=== PATIENT | female | born 1975 | race Caucasian/White ===

== ENCOUNTER 2021-01-06 14:46 | Inpatient (IN) | payer MEDICAID, SELFPAY ==
[2021-01-06] VITALS (13 sets, daily range): BP systolic 99–125; BP diastolic 53–74; PULSE 85–105; RESP 17–32; TEMP 37.2; O2SAT 95–100; BMI 20.7
--- NOTE | 2021-01-06 15:08 | DI.RAD.S_ITS ---
PROCEDURE: XR CHEST 1V INDICATIONS: suspected sepsis TECHNIQUE: One view of the chest was acquired. COMPARISON: [facility], , CHEST 2 VIEW, 06/07/2007, 17:10. FINDINGS: Surgical changes and devices: None. Lungs and pleura: Lungs are clear. No pleural effusions or pneumothorax. Mediastinum: Mediastinal contours appear normal. Heart size is normal. Bones and chest wall: No suspicious bony lesions. Overlying soft tissues appear unremarkable. IMPRESSION: The patient is rotated and tilted rightward. A definite pneumonia is not seen but quality of visualization is somewhat limited. Follow-up CT scanning may become necessary. Dictated by: Griffin Pierre M.D. on 01/06/2021 at 16:45 Approved by: Griffin Pierre M.D. on 01/06/2021 at 16:45
--- NOTE | 2021-01-06 15:39 | DI.RAD.S_ITS ---
PROCEDURE: XR FOOT RT MIN 3V INDICATIONS: SEVERE INFECTION RIGHT FOOT TECHNIQUE: 3 views of the foot were acquired. COMPARISON: None. FINDINGS: Bones: No fractures or dislocations but there is severe osteomyelitis involving the distal half of the 1st distal phalanx, involving the distal, middle, and proximal phalanges of the 2nd digit prominent soft tissue swelling is present.. No suspicious bony lesions. Soft tissues: No tibiotalar joint effusion. Achilles tendon appears normal. IMPRESSION: Prominent soft tissue swelling over the medial forefoot, with osteolysis involving the distal 1st digit and the 3 phalanges of the 2nd digit. Dictated by: Griffin Pierre M.D. on 01/06/2021 at 16:12 Approved by: Griffin Pierre M.D. on 01/06/2021 at 16:13
[2021-01-06] MEDS: SODIUM CHLORIDE 0.9% 1,000 ML 1000 ML IV (18:54)
[2021-01-06 19:01] LABS: Add Manual Diff / Slide Review NO; Basophils Absolute Auto 100 /uL (0-100); Basophils Percent Auto 0.6 % (0-2); Eosinophils Absolute Auto 100 /uL (0-450); Eosinophils Percent Auto 0.8 % (2-4); Hematocrit 32.4 % (36-46); Hemoglobin 10.1 g/dL (12.0-16.0); Lymphocytes Absolute Auto 1400 /uL (1100-4500); Lymphocytes Percent Auto 10.9 % (25-40); Mean Corpuscular HGB Conc 31.1 % (30-36); Mean Corpuscular Hemoglobin 25.4 PG (26-34); Mean Corpuscular Volume 81.8 fL (80-100); Monocytes Absolute Auto 1400 /uL (0-900); Monocytes Percent Auto 10.9 % (3-14); Neutrophils Absolute Auto 9900 /uL (1500-7000); Neutrophils Percent Auto 76.8 % (50-75); Platelet Count 305 X10^3/uL (150-400); Red Blood Cell Count 3.95 X10^6/uL (4.0-5.2); Red Cell Distribution Width 19.7 % (11.6-14.8); White Blood Cell Count 12.9 X10^3/uL (4.5-11.0)
--- NOTE | 2021-01-06 19:12 | ED.LOWEXIN ---
HPI - Extremity Injury (Lower) General Chief Complaint: Extremity Injury, Lower Stated Complaint: severe infection on right foot Time Seen by Provider: 01/06/21 19:06 Source: patient and family Mode of arrival: Wheelchair Limitations: no limitations History of Present Illness HPI Narrative: Female who is here for evaluation of an infection in her right foot. Is also having pain and discoloration and swelling. She states she has been having right foot problems for the past several weeks if not longer. She has not seen anyone for this issue. She does not have any specific trauma. She states that the way that her foot looks now started to develop over the past couple days. She states she has spent extended amount of time in her shoes and socks and has not looked at her foot. 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 She states that she ?just has not looked ?at her feet. Related Data Home Medications Medication Instructions Recorded Confirmed MEDROXYPROGESTERONE ACETATE 0 IM Q 3 MONTHS #0 06/07/07 (Depo-Provera) Allergies Allergy/AdvReac Type Severity Reaction Status Date / Time No Known Drug Allergies Allergy Verified 01/06/21 14:55 Review of Systems Constitutional Constitutional: Denies fever(s) Cardiovascular Cardiovascular: Denies chest pain and Denies dyspnea Respiratory Respiratory: Denies dyspnea Gastrointestinal Gastrointestinal: Denies abdominal pain Musculoskeletal Comments: Right foot pain Integumentary/Breasts Comments: Redness and swelling of the right foot Neurologic Comments: Minimal decreased sensation to the right foot Psychiatric Psychiatric: Reports system reviewed and no additional complaints, except as documented Hematologic/Lymphatic On Anticoagulants: No Allergic/Immunologic Allergic/Immunologic: Reports system reviewed and no additional complaints, except as documented Patient History Medical History Patient denies medical problems Social History Smoking Status: Never smoker Smoking Status: Never smoker Substance Use Type: does not use Exam Initial Vital Signs Initial Vital Signs: Vital Signs Temperature 99 F 01/06/21 14:55 Pulse Rate 97 H 01/06/21 14:55 Respiratory Rate 24 01/06/21 14:55 Blood Pressure 115/74 01/06/21 14:55 Pulse Oximetry 100 01/06/21 14:55 Const General: cooperative HENMT Head: normal to inspection and normocephalic Resp Effort & Inspection: normal respiratory effort Cardio Rate: regular rate Pulses: dorsalis pedis present on the right Skin Other: Patient has a swollen right foot. She is red from her toes to her ankles. There is what appears to be purulent material coming from between her toes. Has foul smell. Neuro Sensory Exam: no sensory deficits noted Extrem Other: Right lower extremity swelling with right foot swelling Psych Appearance: grossly normal Course Orders Ordered: ED Orders 01/07/21 05:00 C-Reactive Protein Quant Urgent Complete Blood Count AUTO DIFF DAILY Comprehensive Metabolic Panel DAILY Erythrocyte Sedimentation Rate Urgent Magnesium Urgent 01/08/21 05:00 Complete Blood Count AUTO DIFF DAILY Comprehensive Metabolic Panel DAILY 01/09/21 05:00 Complete Blood Count AUTO DIFF DAILY Comprehensive Metabolic Panel DAILY Sodium Chloride (Normal Saline 0.9%) 1,000 mls @ 125 mls/hr IV CONT GREGORIO Last Admin: 01/06/21 23:01 Dose: 125 mls/hr Documented by: YENNY Discontinued Medications Hydrocodone Bitart/Acetaminophen (Hydrocodone/Acet 5/325 Tablet) 1 tab PO NOW ONE Stop: 01/06/21 22:57 Last Admin: 01/06/21 23:01 Dose: 1 tab Documented by: YENNY Sodium Chloride (Normal Saline 0.9%) 1,000 mls @ 1,000 mls/hr IV BOLUS ONE Stop: 01/06/21 16:07 Last Infusion: 01/06/21 20:46 Dose: 0 mls/hr Documented by: Admin: 01/06/21 18:54 Dose: 1,000 mls/hr Documented by: MILA Vancomycin HCl (Vancomycin) 1,000 mg in 200 mls @ 200 mls/hr IV NOW ONE Stop: 01/06/21 20:12 Last Infusion: 01/06/21 21:46 Dose: 0 mls/hr Documented by: Admin: 01/06/21 20:40 Dose: 200 mls/hr Documented by: CARYL Ceftriaxone Sodium 1,000 mg/ (Sodium Chloride) 100 mls @ 200 mls/hr IV NOW ONE Stop: 01/06/21 19:14 Last Infusion: 01/06/21 20:40 Dose: 0 mls/hr Documented by: Admin: 01/06/21 19:54 Dose: 200 mls/hr Documented by: YENNY Vital Signs Vital signs: Vital Signs - 8 hr 01/06/21 23:30 01/07/21 00:00 01/07/21 00:30 Pulse Rate 89 86 83 Respiratory Rate 32 H 20 26 H Blood Pressure 100/53 L 95/54 L 95/64 Pulse Oximetry 98 96 98 01/07/21 01:00 01/07/21 01:30 01/07/21 02:00 Pulse Rate 81 80 78 Respiratory Rate 26 H 22 17 Blood Pressure 107/65 116/58 L Pulse Oximetry 97 98 96 01/07/21 02:30 01/07/21 03:00 01/07/21 03:30 Pulse Rate 75 75 75 Respiratory Rate 23 20 13 Blood Pressure 95/59 L 92/52 L 103/56 L Pulse Oximetry 97 97 99 01/07/21 04:00 01/07/21 04:30 01/07/21 05:00 Pulse Rate 77 77 77 Respiratory Rate 21 21 21 Blood Pressure 100/57 L 92/52 L Pulse Oximetry 98 100 98 MDM - Extremity Injury (Lower) Lab Data Attestation: I reviewed the patient's lab results. Result diagrams: 01/06/21 18:43 01/06/21 18:43 Labs: Lab Results 01/06/21 01/06/21 01/06/21 Range/Units 18:43 18:43 18:43 WBC 12.9 H (4.5-11.0) X10^3/uL RBC 3.95 L (4.0-5.2) X10^6/uL Hgb 10.1 L (12.0-16.0) g/dL Hct 32.4 L (36-46) % MCV 81.8 (80-100) fL MCH 25.4 L (26-34) PG MCHC 31.1 (30-36) % RDW 19.7 H (11.6-14.8) % Plt Count 305 (150-400) X10^3/uL Neut % (Auto) 76.8 H (50-75) % Lymph % (Auto) 10.9 L (25-40) % [place] % (Auto) 10.9 (3-14) % Eos % (Auto) 0.8 L (2-4) % Baso % (Auto) 0.6 (0-2) % Neut # (Auto) 9900 H (1644-3805) /uL Lymph # (Auto) 1400 (1048-1464) /uL [place] # (Auto) 1400 H (0-900) /uL Eos # (Auto) 100 (0-450) /uL Baso # (Auto) 100 (0-100) /uL Sodium 129 L (137-145) mmol/L Potassium 3.5 (3.4-5.1) mmol/L Chloride 91 L (98-107) mmol/L Carbon Dioxide 26 (22-32) mmol/L BUN 13 (7-17) mg/dL Creatinine 0.40 L (0.52-1.04) mg/dL Estimated GFR > 60.0 (>60) mL/min BUN/Creatinine Ratio 32.5 H (6-22) Glucose 349 H (70-100) mg/dL Lactate 2.2 H (0.7-2.1) mmol/L Calcium 9.1 (8.4-10.2) mg/dL Total Bilirubin 0.8 (0.2-1.3) mg/dL AST 53 H (14-36) IU/L ALT 22 (<35) IU/L Alkaline Phosphatase 93 (38-126) U/L Total Protein 9.0 H (6.3-8.2) g/dL Albumin 3.8 (3.5-5.0) g/dL Globulin 5.2 H (1.7-4.1) g/dL Albumin/Globulin Ratio 0.7 L (1.0-2.8) Lipase 74 (23-300) U/L Procalcitonin 0.29 (<0.5) ng/mL SARS-CoV-2 (PCR) (Negative) 01/06/21 01/06/21 Range/Units 19:55 21:08 WBC (4.5-11.0) X10^3/uL RBC (4.0-5.2) X10^6/uL Hgb (12.0-16.0) g/dL Hct (36-46) % MCV (80-100) fL MCH (26-34) PG MCHC (30-36) % RDW (11.6-14.8) % Plt Count (150-400) X10^3/uL Neut % (Auto) (50-75) % Lymph % (Auto) (25-40) % [place] % (Auto) (3-14) % Eos % (Auto) (2-4) % Baso % (Auto) (0-2) % Neut # (Auto) (2504-3862) /uL Lymph # (Auto) (9178-3066) /uL [place] # (Auto) (0-900) /uL Eos # (Auto) (0-450) /uL Baso # (Auto) (0-100) /uL Sodium (137-145) mmol/L Potassium (3.4-5.1) mmol/L Chloride (98-107) mmol/L Carbon Dioxide (22-32) mmol/L BUN (7-17) mg/dL Creatinine (0.52-1.04) mg/dL Estimated GFR (>60) mL/min BUN/Creatinine Ratio (6-22) Glucose (70-100) mg/dL Lactate 1.0 (0.7-2.1) mmol/L Calcium (8.4-10.2) mg/dL Total Bilirubin (0.2-1.3) mg/dL AST (14-36) IU/L ALT (<35) IU/L Alkaline Phosphatase (38-126) U/L Total Protein (6.3-8.2) g/dL Albumin (3.5-5.0) g/dL Globulin (1.7-4.1) g/dL Albumin/Globulin Ratio (1.0-2.8) Lipase (23-300) U/L Procalcitonin (<0.5) ng/mL SARS-CoV-2 (PCR) Negative (Negative) Imaging Data Chest x-ray: Radiologist's Impression: [address] [id number] ReportSigned Patient: Radha Sandhu LMR#: [id number]: 1975Acct:[id number]/Sex: 45 / FDate of Service: 01/06/21Loc: EDAccession Number: [id number] Procedure: XR chest 1V Ordering Provider: Karime Tompkins D.O. PROCEDURE: XR CHEST 1V INDICATIONS: suspected sepsis TECHNIQUE: One view of the chest was acquired. COMPARISON: [facility], , CHEST 2 VIEW, 06/07/2007, 17:10. FINDINGS: Surgical changes and devices: None. Lungs and pleura: Lungs are clear. No pleural effusions or pneumothorax. Mediastinum: Mediastinal contours appear normal. Heart size is normal. Bones and chest wall: No suspicious bony lesions. Overlying soft tissues appear unremarkable. IMPRESSION: The patient is rotated and tilted rightward. A definite pneumonia is not seen but quality of visualization is somewhat limited. Follow-up CT scanning may become necessary. Dictated by: Griffin Pierre M.D. on 01/06/2021 at 16:45 Approved by: Griffin Pierre M.D. on 01/06/2021 at 16:45 Extremity x-ray #1: Radiologist's Impression: [address] [id number] ReportSigned Patient: Radha Sandhu LMR#: [id number]: [id number]:[id number]/Sex: 45 / FDate of Service: 01/06/21Loc: EDAccession Number: [id number] Procedure: XR foot RT min 3V Ordering Provider: *MARY Jack* PROCEDURE: XR FOOT RT MIN 3V INDICATIONS: SEVERE INFECTION RIGHT FOOT TECHNIQUE: 3 views of the foot were acquired. COMPARISON: None. FINDINGS: Bones: No fractures or dislocations but there is severe osteomyelitis involving the distal half of the 1st distal phalanx, involving the distal, middle, and proximal phalanges of the 2nd digit prominent soft tissue swelling is present.. No suspicious bony lesions. Soft tissues: No tibiotalar joint effusion. Achilles tendon appears normal. IMPRESSION: Prominent soft tissue swelling over the medial forefoot, with osteolysis involving the distal 1st digit and the 3 phalanges of the 2nd digit. Dictated by: Griffin Pierre M.D. on 01/06/2021 at 16:12 Approved by: Griffin Pirere M.D. on 01/06/2021 at 16:13 MDM Narrative Medical decision making narrative: Patient is afebrile. Does have leukocytosis. Has an obviously infected right foot with x-ray evidence concerning for bony involvement. Does have a white foul-smelling purulent material coming from the area. There is no signs of necrosis seen. Blood cultures were obtained. Lactate initially 2.2 but this improved. Was given antibiotics here in the emergency department. Given the nature of the wound in the fact the patient does not have a primary provider I do feel the patient needs admitted for IV antibiotics. We had no bed availability at the time of the decision for admission so the patient will be boarded in the emergency department until bed status is obtained. Discussed the case with Dr. Maurer. Will admit for further evaluation and treatment. Discharge Plan Departure Patient Disposition: Admitted As Inpatient Clinical Impression: Cellulitis
[2021-01-06 19:42] LABS: Lactate (Lactic Acid) 2.2 mmol/L (0.7-2.1)
[2021-01-06 19:43] LABS: Alanine Aminotransferase 22 IU/L (<35); Albumin 3.8 g/dL (3.5-5.0); Albumin Globulin Ratio 0.7 (1.0-2.8); Alkaline Phosphatase 93 U/L (38-126); Aspartate Aminotransferase 53 IU/L (14-36); BUN Creatinine Ratio 32.5 (6-22); Bilirubin Total 0.8 mg/dL (0.2-1.3); Blood Urea Nitrogen 13 mg/dL (7-17); Calcium 9.1 mg/dL (8.4-10.2); Carbon Dioxide 26 mmol/L (22-32); Chloride 91 mmol/L (98-107); Estimated Glomerular Filt Rate > 60.0 mL/min (>60); Globulin 5.2 g/dL (1.7-4.1); Glucose 349 mg/dL (70-100); HEMOLYSIS < 15 (0-50); Lipase 74 U/L (23-300); Potassium 3.5 mmol/L (3.4-5.1); Sodium 129 mmol/L (137-145)
[2021-01-06] MEDS: cefTRIAXone 1,000 MG in SODIUM CHLORIDE 0.9% 100 ML 200 ML IV (19:54)
[2021-01-06 20:00] LABS: Procalcitonin 0.29 ng/mL (<0.5)
[2021-01-06] MEDS: VANCOMYCIN 1,000 MG/200 ML PIGGYBACK 200 MG IV (20:40)
[2021-01-06 20:51] LABS: Reflexed Lactate in 2 Hours Y
[2021-01-06 21:29] LABS: COVID19 - ADMIT (NP swab/PCR) Negative (Negative)
[2021-01-06] MEDS: HYDROCODONE/ACET 5/325 TABLET 1 TAB PO (23:01)
[2021-01-06] MEDS: SODIUM CHLORIDE 0.9% 1,000 ML 125 ML IV (23:01)
[2021-01-07] VITALS (19 sets, daily range): BP systolic 92–120; BP diastolic 52–71; PULSE 75–86; RESP 13–28; TEMP 36.9–37.3; O2SAT 96–100; BMI 20.7
[2021-01-07 07:57] LABS: Alanine Aminotransferase 16 IU/L (<35); Albumin 2.9 g/dL (3.5-5.0); Albumin Globulin Ratio 0.7 (1.0-2.8); Alkaline Phosphatase 66 U/L (38-126); Aspartate Aminotransferase 37 IU/L (14-36); Bilirubin Total 0.4 mg/dL (0.2-1.3); Blood Urea Nitrogen 8 mg/dL (7-17); Carbon Dioxide 28 mmol/L (22-32); Chloride 98 mmol/L (98-107); Estimated Glomerular Filt Rate > 60.0 mL/min (>60); Globulin 4.4 g/dL (1.7-4.1); Glucose 250 mg/dL (70-100); HEMOLYSIS < 15 (0-50); Potassium 3.4 mmol/L (3.4-5.1); Sodium 132 mmol/L (137-145); Total Protein 7.3 g/dL (6.3-8.2)
[2021-01-07 07:58] LABS: Add Manual Diff / Slide Review NO; Basophils Absolute Auto 100 /uL (0-100); Basophils Percent Auto 1.3 % (0-2); Eosinophils Absolute Auto 300 /uL (0-450); Hematocrit 28.4 % (36-46); Hemoglobin 8.8 g/dL (12.0-16.0); Lymphocytes Absolute Auto 1700 /uL (1100-4500); Lymphocytes Percent Auto 19.6 % (25-40); Mean Corpuscular HGB Conc 31.1 % (30-36); Mean Corpuscular Hemoglobin 25.3 PG (26-34); Mean Corpuscular Volume 81.2 fL (80-100); Monocytes Absolute Auto 900 /uL (0-900); Monocytes Percent Auto 10.5 % (3-14); Neutrophils Absolute Auto 5700 /uL (1500-7000); Neutrophils Percent Auto 65.6 % (50-75); Platelet Count 265 X10^3/uL (150-400); Red Cell Distribution Width 19.9 % (11.6-14.8); White Blood Cell Count 8.7 X10^3/uL (4.5-11.0)
[2021-01-07 08:06] LABS: Erythrocyte Sedimentation Rate > 140 MM/HR (0-20)
[2021-01-07 08:10] LABS: C-Reactive Protein Quant 18.9 mg/dL (<1.0)
--- NOTE | 2021-01-07 09:15 | DI.MRI.S_ITS ---
PROCEDURE: MR FOOT RT WO/W CON INDICATIONS: rt foot abscess TECHNIQUE: Noncontrast coronal T1 spin echo and STIR, sagittal T1 spin echo with fat saturation and STIR, axial T1 spin echo and T2 fast spin echo with fat saturation. After the administration of contrast, axial/sagittal/coronal T1 spin echo with fat saturation through the right forefoot . COMPARISON: [facility], CR, XR FOOT RT MIN 3V, 01/06/2021, 15:34. FINDINGS: Image quality: Exam markedly degraded by uncontrollable motion artifact. Bones: Redemonstrated lytic and destructive appearance involving the middle and proximal phalanges of the 2nd toe. There is associated soft tissue swelling, and possible gas seen at the distal plantar aspect of the 2nd toe image 15/4. Marrow signal changes in these areas demonstrating loss of normal fat signal intensity on T1 weighted pulse sequences, although partially obscured by motion artifact. Remaining marrow signal appears grossly normal although suboptimal evaluation given extensive motion artifact. Soft tissues: Large rim enhancing abscess is seen in the deep plantar soft tissues, with close approximation to the skin surface and recommend clinical correlation to determine external communication. There is also extension of fluid into the 1st-2nd interspace on image 26/11. Exact measurements are precluded by irregular configuration however on image 38/11 this measures 2.8 x 1.9 cm. This closely approximates and surrounds the the flexor tendons, the 2nd toe flexor tendon is not well seen and may be ruptured. The 2nd toe extensor tendon also not well seen and may be ruptured. The remaining extensor tendons appear grossly intact although not well seen at the great toe in part due to motion artifact. Circumferential skin thickening and subcutaneous cellulitis. Diffuse muscle atrophy. IMPRESSION: Osteomyelitis involving the 2nd toe proximal and middle phalanges with redemonstrated leona osseous destruction. Large ill-defined abscess involve in the deep plantar soft tissues, which extends to the plantar skin surface of the forefoot, and into the 1st-2nd toe interspace. Severely motion degraded examination. Dictated by: Mckay Reed M.D. on 01/07/2021 at 11:47 Approved by: Mckay Reed M.D. on 01/07/2021 at 12:07
--- NOTE | 2021-01-07 09:38 | PM.HP.1 ---
History of Present Illness History of Present Illness Date Patient Seen: 01/07/21 Time Patient Seen: 08:30 Chief complaint: severe infection on right foot Narrative: Patient is a 45-year-old female with history of alcohol dependency presents to the emergency department with complaints of right foot pain, redness and swelling for several days. Actually she admits to having swelling in the right foot for at least the past 5 months. She admits to ignoring symptoms. She states she has not been changing her socks every day but the last couple of days her foot became more obviously erythematous and painful. Evaluation in the ED included blood work which showed WBC 12.9, ESR greater than 140 and CRP of 18.9. Her blood sugar was 349 and patient was not previously known to have diabetes. She was afebrile. A foot x-ray showed osteolysis in the right 2nd digit. Patient was started on broad-spectrum antibiotics. Patient admits to chronic alcohol use consisting of significant amount of vodka although can not quantify. She has not previously tried to quit drinking or seek treatment for alcohol dependency. She is a nonsmoker. She is and works as a cook at the [employer]. In terms of family history her mom, father and sister all with diabetes. Her mom of [place]. there is also alcohol history in at least her father. Patient History Medical History Patient denies medical problems Family & Social History Safety & Behavioral: Feels Safe in Current Yes Environment Been Physically Hurt or No Threatened By a Person Tobacco & Substance use: Smoking Status Never smoker alcohol intake frequency 3 or more drinks per day Substance Use Type does not use Meds Home Medications and Allergies Home Medications Medication Instructions Recorded Confirmed Type MEDROXYPROGESTERONE ACETATE 0 IM Q 3 MONTHS #0 06/07/07 History (Depo-Provera) Allergies Allergy/AdvReac Type Severity Reaction Status Date / Time No Known Drug Allergies Allergy Verified 01/06/21 14:55 Review of Systems Review of Systems Narrative: All review of systems negative unless otherwise stated, + insomnia-has not slept for a week Exam Vital Signs (past 8 hours): - 01/07/21 02:00 01/07/21 02:30 01/07/21 03:00 Pulse Rate 78 75 75 Respiratory Rate 17 23 20 Blood Pressure 116/58 L 95/59 L 92/52 L Pulse Oximetry 96 97 97 01/07/21 03:30 01/07/21 04:00 01/07/21 04:30 Pulse Rate 75 77 77 Respiratory Rate 13 21 21 Blood Pressure 103/56 L 100/57 L Pulse Oximetry 99 98 100 01/07/21 05:00 01/07/21 05:30 01/07/21 06:00 Pulse Rate 77 78 75 Respiratory Rate 21 15 17 Blood Pressure 92/52 L 92/54 L 93/54 L Pulse Oximetry 98 99 97 01/07/21 06:30 01/07/21 07:00 01/07/21 07:01 Pulse Rate 79 79 79 Respiratory Rate 28 H 20 Blood Pressure 93/64 109/56 L Pulse Oximetry 98 97 99 Oxygen Delivery Method Room Air Narrative Exam Narrative: General: Patient appears alert, well developed and well nourished in no acute distress HEENT: Anicteric, pupils equal, EOMI, oropharynx normal Neck: No lymphadenopathy Lungs: Clear to auscultation Heart: Normal S1 and S2, regular rate and rhythm, no murmur Abdomen: Nondistended, nontender, no HSM Extremities/musculoskeletal: The right foot is severely swollen and diffusely erythematous medially to distally involving digits 1-5, there is copious pus coming out between the great toe and 2nd digit, the plantar portion of the mid to distal foot is also swollen without obvious fluctuance, due to swelling the toes are difficult to separate so it is hard to tell whether there is an ulcer between the toes but no ulcer seen on this exam, DP 2+ bilaterally Neurological: Appears well oriented, speech normal, affect normal to flat, nonfocal Objective Labs Result Diagrams: 01/07/21 07:38 01/07/21 07:38 Labs: Laboratory Results - last 24 hr 01/06/21 01/06/21 01/06/21 18:43 18:43 18:43 WBC 12.9 H RBC 3.95 L Hgb 10.1 L Hct 32.4 L MCV 81.8 MCH 25.4 L MCHC 31.1 RDW 19.7 H Plt Count 305 Neut % (Auto) 76.8 H Lymph % (Auto) 10.9 L [place] % (Auto) 10.9 Eos % (Auto) 0.8 L Baso % (Auto) 0.6 Neut # (Auto) 9900 H Lymph # (Auto) 1400 [place] # (Auto) 1400 H Eos # (Auto) 100 Baso # (Auto) 100 ESR Sodium 129 L Potassium 3.5 Chloride 91 L Carbon Dioxide 26 BUN 13 Creatinine 0.40 L Estimated GFR > 60.0 BUN/Creatinine Ratio 32.5 H Glucose 349 H Lactate 2.2 H Calcium 9.1 Magnesium Total Bilirubin 0.8 AST 53 H ALT 22 Alkaline Phosphatase 93 C-Reactive Protein Total Protein 9.0 H Albumin 3.8 Globulin 5.2 H Albumin/Globulin Ratio 0.7 L Lipase 74 Procalcitonin 0.29 SARS-CoV-2 (PCR) 01/06/21 01/06/21 01/07/21 19:55 21:08 07:38 WBC 8.7 RBC 3.50 L Hgb 8.8 L Hct 28.4 L MCV 81.2 MCH 25.3 L MCHC 31.1 RDW 19.9 H Plt Count 265 Neut % (Auto) 65.6 Lymph % (Auto) 19.6 L [place] % (Auto) 10.5 Eos % (Auto) 3.0 Baso % (Auto) 1.3 Neut # (Auto) 5700 Lymph # (Auto) 1700 [place] # (Auto) 900 Eos # (Auto) 300 Baso # (Auto) 100 ESR Sodium Potassium Chloride Carbon Dioxide BUN Creatinine Estimated GFR BUN/Creatinine Ratio Glucose Lactate 1.0 Calcium Magnesium Total Bilirubin AST ALT Alkaline Phosphatase C-Reactive Protein Total Protein Albumin Globulin Albumin/Globulin Ratio Lipase Procalcitonin SARS-CoV-2 (PCR) Negative 01/07/21 01/07/21 01/07/21 07:38 07:38 07:38 WBC RBC Hgb Hct MCV MCH MCHC RDW Plt Count Neut % (Auto) Lymph % (Auto) [place] % (Auto) Eos % (Auto) Baso % (Auto) Neut # (Auto) Lymph # (Auto) [place] # (Auto) Eos # (Auto) Baso # (Auto) ESR > 140 H Sodium 132 L Potassium 3.4 Chloride 98 Carbon Dioxide 28 BUN 8 Creatinine 0.32 L Estimated GFR > 60.0 BUN/Creatinine Ratio 25.0 H Glucose 250 H Lactate Calcium 8.0 L Magnesium 2.0 Cancelled Total Bilirubin 0.4 AST 37 H ALT 16 Alkaline Phosphatase 66 C-Reactive Protein 18.9 H Cancelled Total Protein 7.3 Albumin 2.9 L Globulin 4.4 H Albumin/Globulin Ratio 0.7 L Lipase Procalcitonin SARS-CoV-2 (PCR) Assessment & Plan Assessment & Plan narrative: 1. Right foot cellulitis and abscess -wound culture, blood culture -MRI with and without contrast .- ESR > 140, CRP > 18 -x-ray shows evidence of osteomyelitis 2nd toe -broad-spectrum antibiotics: Vancomycin and meropenem -consult Dr. Lloyd Hernandez, orthopedic surgery -NPO for surgical I and D 2. Type 2 diabetes, new diagnosis -glucose 348 -check hemoglobin A1c -start Lantus 20 units HS -NovoLog medium dose sliding scale -Diabetes Education -lipid panel 3. Alcohol dependency -[facility] protocol -lorazepam as needed ETOH withdrawal and for sleep 4. Normocytic anemia, likely chronic -hemoglobin 10.1 on admit, etiology likely secondary to chronic alcoholism and infection -check iron profile, ferritin 5. Mild hyponatremia -sodium 129 on admit likely partly hyperglycemia and partly alcoholism related -hydrate with normal saline 125 cc/hour Admit status: Inpatient Code status: Full code DVT prophylaxis: Start Lovenox after surgery
[2021-01-07] MEDS: SODIUM CHLORIDE 0.9% 1,000 ML 125 ML IV (09:49)
[2021-01-07 09:59] LABS: Cholesterol 110 mg/dL (140-199); HDL Cholesterol 9 mg/dL (40-60); LDL Cholesterol Calculated 75 mg/dL (<100); Triglycerides 131 mg/dL (35-150)
[2021-01-07] MEDS: LORazepam 2 MG/ML INJ 1 MG IV (10:01)
[2021-01-07 10:15] LABS: Hemoglobin A1C% w Est Avg Glu 12.8 % (4.0-6.0)
[2021-01-07] MEDS: MEROPENEM 2 GM in SODIUM CHLORIDE 0.9% 100 ML 200 ML IV ×2 (11:18→17:13)
[2021-01-07] MEDS: MORPHINE 2 MG/ML INJ IV (11:25)
[2021-01-07] MEDS: INSULIN LISPRO 100 UNIT/ML 3ML VIAL SUBCUT ×2 (11:26→17:14)
[2021-01-07] MEDS: VANCOMYCIN 1,250 MG/250 ML PIGGYBACK 250 MG IV (12:37)
--- NOTE | 2021-01-07 14:16 | PC.NURSE ---
Patient up from ED at 0900, A/O x 3, Don is beside. VSS. Patient anxious regarding recent Dx of DM, tearful. Reassured patient. R foot is [employer], multiple open wounds. Gently cleaned with gauze and saline. Two ulcers noted between R great toe and 2nd toe. Wounds noted on both dorsal, medial and plantar aspect of second toe, plantar aspect wound is approximately 1.9 cm deep at this time. Others are covered in slough. Large amounts of purulent drainage. Noted ulcer at dorsal base of 3rd toe, draining serosanguinous. All the toes are edematous, erythemic, tight and warm to touch. Patient c/o pain 5/10, Morphine 2 mg administered before obtaining wound culture. Wound loosely covered with ABD pad and loosely covered with kerlex. Patient c/o R calf pain. MD aware-no SCD's. NS @ 125 cc/hr running in right FA. Patient informed of surgery scheduled for tomorrow. Patient given education regarding DM and insulin. Patient able to stand and pivot to BSC. Voiding. BT active x 4, date of last BM unkown. Patient instructed to call before getting OOB. Call light in reach.
--- NOTE | 2021-01-07 15:49 | PC.NURSE ---
Addendum entered by Miriam Edward R.N. 01/07/21 18:05: Pt is able to transfer self from bed to commode and into wheelchair. Right foot with kerlix in place is dry and intact. Pt is alert, oriented, appropriate and able to make needs and wants known to staff. Pt left hospital with spouse against medical advice with all personal effects account for. Pt was escorted to vehicle by OVEREDGER (with spouse) via wheelchair. Addendum entered by Miriam Edward R.N. 01/07/21 17:45: Dr. Hernandez answering service was informed of pt's and pt's spouse's decision to leave AMA. Per gasket supervisor, Lisbeth, paperwork for leaving against medical advice has been issued and signatures obtained. Per Dr. Maurer, it has been made clear to pt and pt's spouse if pt leaves, pt is leaving against medical advice. Addendum entered by Miriam Edwadr R.N. 01/07/21 17:37: Dr. Maurer in to speak with pt and pt's spouse re consult with ortho this evening if spouse plans to take pt from hospital. Pt is now awake, alert and feeding self dinner. Addendum entered by Miriam Edward R.N. 01/07/21 16:55: Supply Teacher, Lisbeth, reports to this sports book writer Dr. Maurer has informed pt's spouse if decision is made to take pt from hospital pt will need to sign out against medical advice. Spouse continues to desire to take pt to [facility] but desires to wait until pt more wakeful s/p earlier morphine administration. Spouse states would like staff to continue with plan of care. Addendum entered by Miriam Edward R.N. 01/07/21 16:42: Pt is sleeping soundly in bed with seizure pads in place. Rouses easily to staff checking blood sugar. Pain scale per FLACC equals 0. Spouse states will be taking pt from hospital to pursue treatment at [facility]. Evening welfare supervisorLisbeth, and Dr. Maurer into pt's room to address. Addendum entered by Miriam Edward R.N. 01/07/21 16:16: Supply Teacher, Lisbeth, in to speak with pt and pt's spouse re request to transfer to [facility]. No bed available and waiting list exists. Pt was placed on this waiting list. Original Note: Pt's spouse comes to nurses station during shift change and requests pt be transferred to [facility] for wound care based on family member's recommendation. Spouse states has been intact with [id number] and this is the recommendation. Dr. Maurer was informed and requests coordinator make call to check on bed availability as per family request. Lisbeth Hubbard was informed and request made. Spouse states care at [facility] is not in question, but due to family member's input, this is spouse's desire. Will keep spouse updated.
== END 2021-01-07 18:07 | disposition left against medical advice (07) | DRG 638 ==
LOC: ED 01-07 04:45 → AC 01-07 07:16
PROVIDERS: Emergency Medicine; Nurse Practitioner Family; Admitting Provider Internal Medicine; Emergency Provider Emergency Medicine; Referring Provider Emergency Medicine; Visit Provider Internal Medicine
DX: E11.69 Type 2 diabetes mellitus with other specified complication (principal); L03.115 Cellulitis of right lower limb; M86.8X7 Other osteomyelitis, ankle and foot; D64.9 Anemia, unspecified; F10.20 Alcohol dependence, uncomplicated; Z20.822 Contact with and (suspected) exposure to COVID-19; Z53.29 Procedure and treatment not carried out because of patient's decision for other reasons
CPT/HCPCS: 36415; 71045; 73630; 73720; 80053; 80061; 83036; 83605; 83690; 83735; 84145; 85025; 85651; 86140; 87040; 87070; 87075; 87077; 87147; 87205; 87635; 96361; 96365; 96367; 99284; C9803; A9579; J0696; J1815; J2060; J2185; J2270

== ENCOUNTER → 2021-01-25 13:42 | Outpatient (CLI) | payer MEDICAID, SELFPAY ==
[2021-01-07 09:18] VITALS: BMI 20.7
== END ==
PROVIDERS: Visit Provider Family Medicine
DX: S91.301A Unspecified open wound, right foot, initial encounter (principal); M86.171 Other acute osteomyelitis, right ankle and foot; F10.20 Alcohol dependence, uncomplicated; Z79.2 Long term (current) use of antibiotics; E11.9 Type 2 diabetes mellitus without complications
CPT/HCPCS: 11043; 97605; 99213

== ENCOUNTER 2021-01-25 21:13 | Emergency (ER) | payer MEDICAID, SELFPAY ==
[2021-01-07 09:18] VITALS: BMI 20.7
[2021-01-25 21:17] VITALS: BP 149/90; PULSE 72; RESP 18; TEMP 36.4; O2SAT 99
--- NOTE | 2021-01-25 22:05 | PC.NURSE ---
Pt says diabetic and needed some food. gave a sandwich, peanut butter, crackers, and yogart.
--- NOTE | 2021-01-25 23:46 | PC.NURSE ---
Patient has a wound vac on her left foot that they were concerned about. RN investigated and it appears to be working well, just does not have much fluid coming from wound anymore.
[2021-01-26 00:04] VITALS: BP 153/84; PULSE 68; RESP 20; TEMP 36.4; O2SAT 98
--- NOTE | 2021-01-26 00:10 | ED.SKABFB ---
HPI - Skin/Abscess/Foreign Bdy General Chief complaint: Skin/Abscess/Foreign Body Stated complaint: RIGHT FOOT WOUND VAC NOT WORKING Time Seen by Provider: 01/26/21 00:10 Source: patient and family Mode of arrival: Wheelchair Limitations: no limitations History of Present Illness HPI narrative: 45-year-old female comes emergency department with complaint of wound VAC on her right foot not working properly. Patient had osteomyelitis as well as a wound on her foot secondary to diabetic complications and had surgery 3 days ago with amputation of the toe. Patient saw wound care today. Her wound VAC dressing was replaced and they noted that it did not seem to be draining at all for the 1st for 5 hours. Patient readjusted the tubing and seemed to be in having some drainage but not in the same amount and the color was slightly different. Patient has not had any increasing pain, swelling, redness or other changes. She has not had any fevers. She is currently receiving IV antibiotics regularly and has a PICC line in place. Related Data Home Medications Medication Instructions Recorded Confirmed MEDROXYPROGESTERONE ACETATE 0 IM Q 3 MONTHS #0 06/07/07 (Depo-Provera) Allergies Allergy/AdvReac Type Severity Reaction Status Date / Time No Known Drug Allergies Allergy Verified 01/25/21 21:19 Review of Systems Review of Systems ROS Unobtainable: All systems reviewed & are unremarkable except as noted in HPI and below Patient History Medical History Patient denies medical problems Social History household members: spouse Smoking Status: Never smoker Smoking Status: Never smoker alcohol intake frequency: 3 or more drinks per day Substance Use Type: does not use Exam Narrative Exam Narrative: GENERAL: Alert and oriented x three, female in mild distress. HEENT: Head normocephalic, atraumatic, EOMI, pupils reactive, face symmetric, moist mucous membranes NECK: Supple, full range of motion CARDIOVASCULAR: Regular rate and rhythm without murmurs, rubs or gallops. RESPIRATORY: Breath sounds equal bilaterally, no wheezes rales or rhonchi. EXTREMITIES: Patient's right foot has amputation of the 2nd digit with a wedge shaped wound that has wound VAC in place. Surroundings clean is clean dry and intact and does not appear infected. There is no warmth, erythema or drainage surrounding the area. Wound VAC is draining a small amount of serosanguineous fluid regularly. Neurovascularly intact NEUROLOGICAL: Cranial nerves II through XII grossly intact. Moving all extremities SKIN: Warm, dry, no petechiae, no rashes or lesions otherwise noted. Initial Vital Signs Initial Vital Signs: Vital Signs Temperature 97.6 F 01/25/21 21:17 Pulse Rate 72 01/25/21 21:17 Respiratory Rate 18 01/25/21 21:17 Blood Pressure 149/90 H 01/25/21 21:17 Pulse Oximetry 99 01/25/21 21:17 Course Vital Signs Vital signs: Vital Signs - 8 hr 01/26/21 00:04 Temperature 97.6 F Pulse Rate 68 Respiratory Rate 20 Blood Pressure 153/84 H Pulse Oximetry 98 Discharge Plan Departure Patient Disposition: Home Clinical Impression: Wound of right foot, Encounter for management of wound VAC Activity Restrictions/Additional Instructions: Follow-up with your wound care provider, call 1st thing in the morning to see if they would like you to return for recheck. Continue to monitor your output. The color and consistency today does appear appropriate. Please return for fevers, rapidly worsening swelling, redness or skin changes, rapidly worsening pain, if her having purulent or white thick discharge or other new or concerning changes. Prescriptions: No Action MEDROXYPROGESTERONE ACETATE (Depo-Provera) 0 IM Q 3 MONTHS Qty: 0 RF: 0 Referrals: Meet Goldberg MD [Physician] -
== END 2021-01-26 00:17 | disposition home or self-care (01) ==
PROVIDERS: Emergency Provider Emergency Medicine
DX: S91.301A Unspecified open wound, right foot, initial encounter (principal); Z46.89 Encounter for fitting and adjustment of other specified devices
CPT/HCPCS: 11043; 97605; 99213; 99281

== ENCOUNTER → 2021-01-26 12:40 | Outpatient (CLI) | payer MEDICAID, SELFPAY ==
[2021-01-07 09:18] VITALS: BMI 20.7
== END ==
PROVIDERS: Referring Provider Radiology Vascular & Interventional Radiology; Visit Provider Family Medicine
DX: S91.301A Unspecified open wound, right foot, initial encounter (principal); R60.0 Localized edema
CPT/HCPCS: 97605

== ENCOUNTER → 2021-02-01 13:54 | Outpatient (CLI) | payer MEDICAID, SELFPAY ==
[2021-01-07 09:18] VITALS: BMI 20.7
== END ==
PROVIDERS: Referring Provider Emergency Medicine; Visit Provider Family Medicine
DX: E11.628 Type 2 diabetes mellitus with other skin complications (principal); S91.301A Unspecified open wound, right foot, initial encounter; F10.20 Alcohol dependence, uncomplicated; Z79.2 Long term (current) use of antibiotics; M86.171 Other acute osteomyelitis, right ankle and foot; E11.40 Type 2 diabetes mellitus with diabetic neuropathy, unspecified
CPT/HCPCS: 97605; 99213

== ENCOUNTER → 2021-02-08 14:34 | Outpatient (CLI) | payer MEDICAID, SELFPAY ==
[2021-01-07 09:18] VITALS: BMI 20.7
== END ==
PROVIDERS: Visit Provider Family Medicine
DX: E11.628 Type 2 diabetes mellitus with other skin complications (principal); S91.301A Unspecified open wound, right foot, initial encounter; M86.171 Other acute osteomyelitis, right ankle and foot; R60.0 Localized edema; E11.40 Type 2 diabetes mellitus with diabetic neuropathy, unspecified; F10.20 Alcohol dependence, uncomplicated; Z79.2 Long term (current) use of antibiotics
CPT/HCPCS: 11042; 99214

== ENCOUNTER → 2021-02-11 10:45 | Outpatient (CLI) | payer MEDICAID, SELFPAY ==
[2021-01-07 09:18] VITALS: BMI 20.7
--- NOTE | 2021-02-11 15:22 | DIET.PN ---
Initial Diabetes Assessment Date: 02/11/21 Time: 11:05a-12:20pm Dx: Type II Diabetes (newly dx) Provider: Ashlyn Rowe Learning Style: Demonstration PMH: toe amputation, foot abscess, osteomyelitis, ETOH abuse, anemia, hypokalemia Radha presents today with her , Jeremy. She was d/c?d from [place] 01/22 after second toe amputation. h/o ETOH abuse. Newly dx with T2DM. Endorses h/o high carb intake with soda and fast food. Seems motivated today to make changes. seems supportive in changes. FH of T2DM with father and sister. FH of T1 with late mother, whom of complications r/t T1. Today Radha seems confused about the differences between Metformin and insulin. Currently taking low dose Metformin and wanting to try and make lifestyle changes to get off med. Diagnosed with HgA1c of 12.8%. States she is confused as to how much carb or sugar she can have. Gets confused with measuring foods. Some meals >45g, likely resulting in elevations in BG prior to next meal. Additionally, low water intake r/t limited preference for water. Drinking ICE sparkling beverage with melted ice through the day. No ETOH. Likes iced tea with Splenda. 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 Getting wound care at [facility]. Anthropometrics: Ht: 70? Wt: 155.6# Physical Activity: Limited with wound. Activity mostly with work load 6 x per week. No program. Self-Monitoring Blood Glucose: Checking before each meal. No meter or log book. FBG in am usually 120-163 mg/dL. Seems very worried about readings in the 160s. Very worried about being rx?d insulin in the future. Pertinent Labs: HgA1c: 12.8% Diabetes Medications: Metformin 500 mg q morning Recommendations: Carbohydrates: Daily: 150-165g Meal: 45g Snack: 15-30g Intervention: This participant was very receptive. Provided appropriate educational handouts. Discussed the following topics: - Completed intake assessment. Discussed barriers to care. - Pathophysiology of T2DM - Medications: Metformin vs Insulin action - Reviewed HgA1c and its correlation to blood glucose numbers. - Discussed importance of self-monitoring, how often, and when to check. Suggested checking at different times to evaluate meals -Plate Method, impact of macronutrients on blood sugar, meal timing, carb counting, pairing macronutrients and spreading out CHO for better BG mgmnt - Rec servings for carbohydrates at meals and snacks - Heart health nutrition - Brainstormed appropriate meal plan based on her food preferences - Hydration for BG and wound healing. Provided pamphlet on nutrition and wounds. - Encouraged increased intake of water and other hydrating unsweetened beverages - Created SMART goals for pt self-care and success. Goals: - Check BG 1-2 x per day, keep log and bring to next appt (try checking a few postprandial) - Add protein to oatmeal in the morning - Increase water intake to 6c per day min Follow-up: CYNTHIA ASCENCIO follow-up in 2-3 weeks Marleen Wilson RDN, JOHNES Certified Diabetes Care and Manager Data Warehouse P: [phone]
== END ==
PROVIDERS: Referring Provider Family Medicine; Visit Provider Family Medicine
DX: E11.9 Type 2 diabetes mellitus without complications (principal); E87.6 Hypokalemia; D64.9 Anemia, unspecified; Z71.3 Dietary counseling and surveillance; Z79.84 Long term (current) use of oral hypoglycemic drugs
CPT/HCPCS: G0108

== ENCOUNTER → 2021-02-15 10:56 | Outpatient (CLI) | payer MEDICAID, SELFPAY ==
[2021-01-07 09:18] VITALS: BMI 20.7
== END ==
PROVIDERS: Referring Provider Internal Medicine; Visit Provider Family Medicine
DX: E11.628 Type 2 diabetes mellitus with other skin complications (principal); S91.301A Unspecified open wound, right foot, initial encounter; M86.171 Other acute osteomyelitis, right ankle and foot; R60.0 Localized edema; F10.20 Alcohol dependence, uncomplicated; Z79.2 Long term (current) use of antibiotics; E11.40 Type 2 diabetes mellitus with diabetic neuropathy, unspecified
CPT/HCPCS: 11042; 99212

== ENCOUNTER → 2021-02-22 14:22 | Outpatient (CLI) | payer MEDICAID, SELFPAY ==
[2021-01-07 09:18] VITALS: BMI 20.7
== END ==
PROVIDERS: Visit Provider Family Medicine
DX: E11.628 Type 2 diabetes mellitus with other skin complications (principal); S91.301A Unspecified open wound, right foot, initial encounter; T87.89 Other complications of amputation stump; M86.171 Other acute osteomyelitis, right ankle and foot; F10.20 Alcohol dependence, uncomplicated; Z79.2 Long term (current) use of antibiotics; E11.40 Type 2 diabetes mellitus with diabetic neuropathy, unspecified
CPT/HCPCS: 11043

== ENCOUNTER → 2021-02-25 16:58 | Outpatient (CLI) | payer MEDICAID, SELFPAY ==
[2021-01-07 09:18] VITALS: BMI 20.7
--- NOTE | 2021-02-25 18:03 | DIET.PN ---
Follow-up Diabetes Assessment Date: 02/25/21 Time: 5-6pm Dx: Type II Diabetes (newly dx) Provider: Ashlyn Rowe Learning Style: Demonstration PMH: toe amputation, foot abscess, osteomyelitis, ETOH abuse, anemia, hypokalemia Radha presents today with her , Jeremy. Radha has been keeping a food journal and BG logs. Endorses reduced carb intake. Added protein to breakfst. Often eats two meals per day, breakfast and lunch. States she is too full in evening. Most meals seem within recommendations for carbs, some low in protein. No dinner most nights. No eating after 630p, yet morning numbers often elevated. >8 hours fasting. Elevations seem r/t raúl phenomenon. She continues to worry about increasing medications. Would likely benefit from 500 mg Metformin BID. Though her and Jeremy were open to the idea, they would like to try another two weeks before discussing with provider the potential for increasing. Radha continues to sometimes mix up Metformin and insulin. Seemingly h/o trauma with mother T1 complications with hyperglycemia. Tearful about this. States she is scared to eat carbohydrates. Would like to drink coffee, but normally uses sweetened creamers. Jeremy has questions about fatty liver and body depending on medications. Radha endorses recent weight loss. +ETOH abuse hx. Currently in wheelchair and has difficulty with using a scale. Plans to go to wound clinic tomorrow for new weight. Anthropometrics: Ht: 70? Last wt: 149.6# last month Physical Activity: Limited with wound. Activity prior to wound mostly with work load 6 x per week. No program. Self-Monitoring Blood Glucose: Recent fastings (mg/dL): 149, 131, 137, 81, 171, 156, 202, 113, 120, 172. 7 of 10 elevated fastings. All after meal readings within goal ranging from 94-137 mg/dL Pertinent Labs: HgA1c: 12.8% Diabetes Medications: Metformin 500 mg q morning Recommendations: Carbohydrates: Daily: 150-165g Meal: 45g Snack: 15-30g Intervention: This participant was very receptive. Provided appropriate educational handouts. Discussed the following topics: - Review pathophysiology of T2: gluconeogenesis/raúl phenomenon, insulin resistance - Discussed fatty liver (though no dx in notes) - DIfferences btwn T1 v T2 - Reviewed cholesterol and ways to increase HDL - Discussed potential for Metformin 500 mg BID for better BG mgmgnt - Reviewed 12 hr action of regular Metformin -Relation of BG and healing - Discussed importance of protein intake for BG and wound healing Goals: - Check BG 1-2 x per day, keep log and bring to next appt (try checking a few postprandial)- met - Add protein to oatmeal in the morning- met - Increase water intake to 6c per day min- in progress - Try adding PB when having muffin- new - Buy sugar free creamer- new - Try protein shake in evening - new Follow-up: CYNTHIA ASCENCIO follow-up in 2 weeks Marleen Wilson RDN, SILVA Certified Diabetes Care and Multimedia Project Manager P: [phone]
== END ==
PROVIDERS: PCP Family Medicine; Referring Provider Family Medicine; Visit Provider Family Medicine
DX: E11.9 Type 2 diabetes mellitus without complications (principal); L02.619 Cutaneous abscess of unspecified foot; Z71.3 Dietary counseling and surveillance
CPT/HCPCS: G0108

== ENCOUNTER → 2021-03-04 13:52 | Outpatient (CLI) | payer MEDICAID, SELFPAY ==
[2021-01-07 09:18] VITALS: BMI 20.7
== END ==
PROVIDERS: PCP Family Medicine; Referring Provider Emergency Medicine; Visit Provider Family Medicine
DX: E11.9 Type 2 diabetes mellitus without complications (principal); S91.104D Unspecified open wound of right lesser toe(s) without damage to nail, subsequent encounter
CPT/HCPCS: 99212; 99214

== ENCOUNTER → 2021-03-11 09:51 | Outpatient (CLI) | payer MEDICAID, SELFPAY ==
[2021-01-07 09:18] VITALS: BMI 20.7
--- NOTE | 2021-03-11 10:51 | DIET.PN1 ---
Addendum entered by Marleen Wilson 03/11/21 11:11: Discussed plan for hyperglycemia in the morning: if increased activity with protein in the evening/afternoon does not impact FBG, may need to increase Metformin to 500 mg BID. Historically Radha is tearful in discussing medications. Late mother had many complications with T1DM. Original Note: Follow-up Diabetes Assessment Date: 03/11/21 Time: 950-1050am Dx: Type II Diabetes (newly dx) Provider: Ashlyn (soon to be Brianne) Preferred Learning Style: Demonstration PMH: toe amputation, foot abscess, osteomyelitis, ETOH abuse, anemia, hypokalemia Radha presents today with her , Jeremy. Radha continues keeping a food journal and BG logs, though ran out of test strips recently. Plans to establish new PCP (Brianne) on 04/08. Increased protein in the morning, but no protein shake in evening. Endorses increased appetite which at times leads to high carb intake (80+ grams at breakfast). Seems this is coupled with long periods of fasting. Eats BID (Breakfast at 8a and Lunch at 3p). Long fasting seems to result in large intake in the morning. No blood sugars after breakfast, though pre lunch are in range. Continues taking Metformin 500 mg with breakfast, with personal goal to d/c Metformin eventually. Fluid intake reported 32oz water, inadequate. Recent weight of 143# indicates -6# since last visit and -12# over one month (7% weight loss). Risk for malnutrition with increased nutrition needs for wound healing, limited eating occurrences, and ETOH abuse hx. Has f/u with wound in [place] in two weeks. She is asking what the sensation in her foot should be. Reports some compromised feeling in right foot. h/o neuropathy in feet, which has improved per her report. Anthropometrics: Ht: 70? Recent wt: 143# reported today; Wt hx: 155.6# (reported 02/11/21) Physical Activity: No program. Cleared to walk by wound clinic per her report. Self-Monitoring Blood Glucose: Today's readings: fastings (mg/dL): 99, 147, 138, 128, 163, 143. 4/6 elevated fastings. Pre lunch all in range ranging from 84-130 mg/dL. Last visit: fastings (mg/dL): 149, 131, 137, 81, 171, 156, 202, 113, 120, 172. 7 of 10 elevated fastings. All after meal readings within goal ranging from 94-137 mg/dL Pertinent Labs: HgA1c: 12.8% Diabetes Medications: Metformin 500 mg q morning Recommendations: Carbohydrates: Daily: 150-165g Meal: 45g Snack: 15-30g Intervention: This participant was very receptive. Provided appropriate educational handouts. Discussed the following topics: - Goals for blood sugar and potential causes for hyperglycemia in the morning: raúl phenomenon, gluconeogenesis, lack of physical activity - Fluid intake - ways to reduce carb at breakfast and increase protein: nuts, eggs - physical activity vs exercise vs ADLs - SMBG at different times - Impact of Metformin and length of coverage (12 hrs) - label readings for total carbs and not just sugars - Foot health for people with diabetes - Risk for PCM with ETOH hx and weight loss - Encouraged more protein intake through the day - cost effective ways to obtain strips until PCP visit Goals: - Increase water intake to 6c per day min- in progress - Try adding PB when having muffin- not discussed - Buy sugar free creamer- not discussed - Try protein shake in evening - not met - Try resistance training upper body 1-2 x per week- new - Check BG after breakfast to determine trends- new - Measure oat milk- new - Ask wound about sensation expectations in two weeks- new Follow-up: CYNTHIA ASCENCIO follow-up in 6 weeks Marleen Wilson RDN, JOHNES Certified Diabetes Care and Dehydrogenation Operator P: [phone]
== END ==
PROVIDERS: PCP Family Medicine; Referring Provider Family Medicine; Visit Provider Family Medicine
DX: E11.9 Type 2 diabetes mellitus without complications (principal); Z71.3 Dietary counseling and surveillance; Z79.84 Long term (current) use of oral hypoglycemic drugs
CPT/HCPCS: G0108

== ENCOUNTER → 2021-09-27 08:26 | Outpatient (CLI) | payer MEDICAID, SELFPAY ==
[2021-01-07 09:18] VITALS: BMI 20.7
== END ==
PROVIDERS: PCP Family Medicine; Referring Provider Family Medicine; Visit Provider Family Medicine
DX: E11.621 Type 2 diabetes mellitus with foot ulcer (principal); L97.514 Non-pressure chronic ulcer of other part of right foot with necrosis of bone; E11.69 Type 2 diabetes mellitus with other specified complication; M86.171 Other acute osteomyelitis, right ankle and foot; E11.40 Type 2 diabetes mellitus with diabetic neuropathy, unspecified; R60.0 Localized edema; Z89.421 Acquired absence of other right toe(s); R74.8 Abnormal levels of other serum enzymes; E78.5 Hyperlipidemia, unspecified
CPT/HCPCS: 11044; 36415; 80053; 80061; 83036; 84443; 85025; 86140; 87070; 87075; 87077; 87147; 87176; 87186; 87205; 93922; 99214

== ENCOUNTER → 2021-09-27 10:18 | Outpatient (CLI) | payer MEDICAID, SELFPAY ==
[2021-01-07 09:18] VITALS: BMI 20.7
[2021-09-27 11:09] LABS: Add Manual Diff / Slide Review NO; Basophils Absolute Auto 100 /uL (0-100); Basophils Percent Auto 0.9 % (0-2); Eosinophils Absolute Auto 500 /uL (0-450); Eosinophils Percent Auto 8.9 % (2-4); Hematocrit 35.6 % (36-46); Hemoglobin 11.9 g/dL (12.0-16.0); Lymphocytes Absolute Auto 2100 /uL (1100-4500); Lymphocytes Percent Auto 36.7 % (25-40); Mean Corpuscular HGB Conc 33.5 % (30-36); Mean Corpuscular Hemoglobin 30.5 PG (26-34); Monocytes Absolute Auto 300 /uL (0-900); Monocytes Percent Auto 5.9 % (3-14); Neutrophils Absolute Auto 2700 /uL (1500-7000); Neutrophils Percent Auto 47.6 % (50-75); Platelet Count 301 X10^3/uL (150-400); Red Blood Cell Count 3.91 X10^6/uL (4.0-5.2); Red Cell Distribution Width 13.7 % (11.6-14.8); White Blood Cell Count 5.7 X10^3/uL (4.5-11.0)
[2021-09-27 11:19] LABS: Alanine Aminotransferase 6 IU/L (<35); Alkaline Phosphatase 66 U/L (38-126); Aspartate Aminotransferase 15 IU/L (14-36); BUN Creatinine Ratio 19.3 (6-22); Bilirubin Total 0.3 mg/dL (0.2-1.3); Blood Urea Nitrogen 11 mg/dL (7-17); Calcium 8.6 mg/dL (8.4-10.2); Carbon Dioxide 30 mmol/L (22-32); Chloride 101 mmol/L (98-107); Cholesterol 168 mg/dL (140-199); Estimated Glomerular Filt Rate > 60.0 mL/min (>60); Globulin 4.1 g/dL (1.7-4.1); Glucose 92 mg/dL (70-100); HDL Cholesterol 47 mg/dL (40-60); HEMOLYSIS < 15 (0-50); LDL Cholesterol Calculated 106 mg/dL (<100); Potassium 3.9 mmol/L (3.4-5.1); Sodium 136 mmol/L (137-145); Total Protein 8.1 g/dL (6.3-8.2); Triglycerides 77 mg/dL (35-150)
[2021-09-27 11:21] LABS: Hemoglobin A1C% w Est Avg Glu 5.4 % (4.0-6.0)
[2021-09-27 12:14] LABS: TSH w/ Reflex to FT4 4.04 uIU/mL (0.47-4.68)
[2021-10-01 15:12] LABS: C-Reactive Protein Quant 0.7 mg/dL (<1.0)
== END ==
PROVIDERS: PCP Family Medicine; Referring Provider Family Medicine; Visit Provider Family Medicine
DX: E11.621 Type 2 diabetes mellitus with foot ulcer (principal); L08.9 Local infection of the skin and subcutaneous tissue, unspecified; S91.301A Unspecified open wound, right foot, initial encounter; E11.9 Type 2 diabetes mellitus without complications; R74.8 Abnormal levels of other serum enzymes; E78.5 Hyperlipidemia, unspecified
CPT/HCPCS: 36415; 80053; 80061; 83036; 84443; 85025; 86140

== ENCOUNTER → 2021-10-04 14:45 | Outpatient (CLI) | payer MEDICAID, SELFPAY ==
[2021-01-07 09:18] VITALS: BMI 20.7
== END ==
PROVIDERS: PCP Family Medicine; Referring Provider Family Medicine; Visit Provider Family Medicine
DX: E11.621 Type 2 diabetes mellitus with foot ulcer (principal); L97.514 Non-pressure chronic ulcer of other part of right foot with necrosis of bone; E11.69 Type 2 diabetes mellitus with other specified complication; M86.671 Other chronic osteomyelitis, right ankle and foot; B95.7 Other staphylococcus as the cause of diseases classified elsewhere; E11.40 Type 2 diabetes mellitus with diabetic neuropathy, unspecified; F10.21 Alcohol dependence, in remission; Z79.2 Long term (current) use of antibiotics; Z89.421 Acquired absence of other right toe(s)
CPT/HCPCS: 11042; 99213

== ENCOUNTER → 2021-10-11 09:06 | Outpatient (CLI) | payer MEDICAID, SELFPAY ==
[2021-01-07 09:18] VITALS: BMI 20.7
== END ==
PROVIDERS: PCP Family Medicine; Referring Provider Family Medicine; Visit Provider Family Medicine
DX: E11.621 Type 2 diabetes mellitus with foot ulcer (principal); L97.514 Non-pressure chronic ulcer of other part of right foot with necrosis of bone; L84 Corns and callosities; E11.69 Type 2 diabetes mellitus with other specified complication; E11.40 Type 2 diabetes mellitus with diabetic neuropathy, unspecified; M86.171 Other acute osteomyelitis, right ankle and foot; F10.21 Alcohol dependence, in remission; Z79.2 Long term (current) use of antibiotics
CPT/HCPCS: 11042; 99213

== ENCOUNTER → 2021-10-18 11:34 | Outpatient (CLI) | payer MEDICAID, SELFPAY ==
[2021-01-07 09:18] VITALS: BMI 20.7
== END ==
PROVIDERS: Family Provider Family Medicine; PCP Family Medicine; Referring Provider Family Medicine; Visit Provider Family Medicine
DX: E11.621 Type 2 diabetes mellitus with foot ulcer (principal); L97.514 Non-pressure chronic ulcer of other part of right foot with necrosis of bone; E11.69 Type 2 diabetes mellitus with other specified complication; M86.171 Other acute osteomyelitis, right ankle and foot; E11.40 Type 2 diabetes mellitus with diabetic neuropathy, unspecified; F10.21 Alcohol dependence, in remission; Z79.2 Long term (current) use of antibiotics
CPT/HCPCS: 99213; 99214

== ENCOUNTER → 2021-10-25 08:59 | Outpatient (CLI) | payer MEDICAID, SELFPAY ==
[2021-01-07 09:18] VITALS: BMI 20.7
== END ==
PROVIDERS: Family Provider Family Medicine; PCP Family Medicine; Referring Provider Family Medicine; Visit Provider Family Medicine
DX: E11.621 Type 2 diabetes mellitus with foot ulcer (principal); L97.514 Non-pressure chronic ulcer of other part of right foot with necrosis of bone; E11.69 Type 2 diabetes mellitus with other specified complication; M86.671 Other chronic osteomyelitis, right ankle and foot; B95.7 Other staphylococcus as the cause of diseases classified elsewhere; E11.40 Type 2 diabetes mellitus with diabetic neuropathy, unspecified; F10.21 Alcohol dependence, in remission; Z79.2 Long term (current) use of antibiotics; Z89.421 Acquired absence of other right toe(s)
CPT/HCPCS: 99213; 99214

== ENCOUNTER → 2021-11-02 10:02 | Outpatient (CLI) | payer MEDICAID, SELFPAY ==
[2021-01-07 09:18] VITALS: BMI 20.7
== END ==
PROVIDERS: Family Provider Family Medicine; PCP Family Medicine; Referring Provider Family Medicine; Visit Provider Family Medicine
DX: E11.621 Type 2 diabetes mellitus with foot ulcer (principal); L97.516 Non-pressure chronic ulcer of other part of right foot with bone involvement without evidence of necrosis; E11.69 Type 2 diabetes mellitus with other specified complication; M86.671 Other chronic osteomyelitis, right ankle and foot; B95.7 Other staphylococcus as the cause of diseases classified elsewhere; E11.40 Type 2 diabetes mellitus with diabetic neuropathy, unspecified; R77.1 Abnormality of globulin; R79.82 Elevated C-reactive protein (CRP); F10.21 Alcohol dependence, in remission; Z79.2 Long term (current) use of antibiotics; Z89.421 Acquired absence of other right toe(s)
CPT/HCPCS: 15275; 99214; Q4110

== ENCOUNTER → 2021-11-09 14:44 | Outpatient (CLI) | payer OTHER, MEDICAID, SELFPAY ==
[2021-01-07 09:18] VITALS: BMI 20.7
== END ==
PROVIDERS: Family Provider Family Medicine; PCP Family Medicine; Referring Provider Family Medicine; Visit Provider Family Medicine
DX: E11.621 Type 2 diabetes mellitus with foot ulcer (principal); L97.512 Non-pressure chronic ulcer of other part of right foot with fat layer exposed; E11.69 Type 2 diabetes mellitus with other specified complication; M86.671 Other chronic osteomyelitis, right ankle and foot; B95.7 Other staphylococcus as the cause of diseases classified elsewhere; E11.40 Type 2 diabetes mellitus with diabetic neuropathy, unspecified; F10.21 Alcohol dependence, in remission; Z79.2 Long term (current) use of antibiotics; Z89.421 Acquired absence of other right toe(s)
CPT/HCPCS: 11042; 99214

== ENCOUNTER → 2021-11-15 09:42 | Outpatient (CLI) | payer OTHER, MEDICAID, SELFPAY ==
[2021-01-07 09:18] VITALS: BMI 20.7
== END ==
PROVIDERS: Family Provider Family Medicine; PCP Family Medicine; Referring Provider Family Medicine; Visit Provider Family Medicine
DX: E11.69 Type 2 diabetes mellitus with other specified complication (principal); M86.671 Other chronic osteomyelitis, right ankle and foot; B95.7 Other staphylococcus as the cause of diseases classified elsewhere; F10.21 Alcohol dependence, in remission; Z79.2 Long term (current) use of antibiotics; Z89.421 Acquired absence of other right toe(s); Z86.31 Personal history of diabetic foot ulcer
CPT/HCPCS: 99212; 99213

== ENCOUNTER → 2021-11-29 14:13 | Outpatient (CLI) | payer OTHER, MEDICAID, SELFPAY ==
[2021-01-07 09:18] VITALS: BMI 20.7
== END ==
PROVIDERS: Family Provider Family Medicine; PCP Family Medicine; Referring Provider Family Medicine; Visit Provider Family Medicine
DX: Z09 Encounter for follow-up examination after completed treatment for conditions other than malignant neoplasm (principal); M20.11 Hallux valgus (acquired), right foot; Z89.421 Acquired absence of other right toe(s); Z86.31 Personal history of diabetic foot ulcer
CPT/HCPCS: 99212; 99213

== ENCOUNTER → 2021-12-08 09:09 | Outpatient (CLI) | payer OTHER, MEDICAID, SELFPAY ==
[2021-01-07 09:18] VITALS: BMI 20.7
[2021-12-08 12:12] LABS: COVID19 -Nasal RAPID Negative (Negative)
== END ==
PROVIDERS: Family Provider Family Medicine; PCP Family Medicine; Visit Provider Family Medicine Sleep Medicine
DX: Z20.822 Contact with and (suspected) exposure to COVID-19 (principal)
CPT/HCPCS: 87635; C9803

== ENCOUNTER 2021-12-10 07:40 | Day surgery (SDC) | payer OTHER, MEDICAID, SELFPAY ==
[2021-01-07 09:18] VITALS: BMI 20.7
[2021-12-08 08:25] VITALS: BMI 20.3
--- NOTE | 2021-12-10 | PATH_ITS ---
[facility] Accession Number: [id number] . 01 Material submitted: . toe - RIGHT GREAT TOE . 01 Diagnosis: Right Great Toe, Amputation: Skin with mild fibrosis and chronic inflammation. Underlying bone with mild interspersed marrow fibrosis and focal lymphoplasmacytic inflammation; see note. Skin and subcutaneous tissue margin viable. Bone en face margin viable with mild inflammatory findings present. No evidence of malignancy identified in sections examined. . Note: The bone findings are subtle and not entirely specific. The findings could be compatible with a subtle chronic osteomyelitis in the appropriate clinical setting. Clinical and radiographic correlation is suggested. [facility] 12/17/2021 1644 Local . 01 Electronically signed: . Srinath Rosas MD, Dermatopathologist NPI- [id number] . 01 Gross description: . Received in a container of formalin, labeled right great toe, is a 4.0 cm in length stated right great toe, has been submitted tarsally amputated. The margins of resection appear viable and are inked blue. The skin is cifuentes, edematous. No masses or lesions are identified. The specimen is serially sectioned longitudinally. There are cifuentes, rubbery cut surfaces with underlying cancellous, cifuentes-yellow, trabeculated bone. No obvious masses or lesions are identified. A sales representative trainee composite longitudinal section is submitted in cassettes A1-A2, following decalcification. ([id number]) Additional sections are submitted following decalcification: A3: Bone and soft tissue margins en face. A4: Manager Of Business cross-section. ([id number]) /SHANNON 12/15/2021 1246 Local . 01 Pathologist provided ICD-10: M86.9, Z86.31 . 01 CPT . 352008, [id number] Specimen Comment: A courtesy copy of this report has been sent to [phone] Performed at: 01 [facility] [address], [place], [place] [id number] MD Toby Villeda MD Phone: [phone]
[2021-12-10] MEDS: ACETAMINOPHEN 325 MG TABLET 975 MG PO (08:09)
[2021-12-10] MEDS: GABAPENTIN 300 MG CAPSULE PO (08:10)
[2021-12-10] MEDS: SCOPOLAMINE 1 PATCH TOP (08:11)
--- NOTE | 2021-12-10 08:13 | SUR.PREOP ---
Allergies confiirmed prior to PO meds and patch
[2021-12-10 08:19] VITALS: BP 115/74; PULSE 68; RESP 22; TEMP 36.6; O2SAT 98; BMI 20.3
[2021-12-10] MEDS: LACTATED RINGERS 1,000 ML 42 ML IV (09:00)
--- NOTE | 2021-12-10 09:49 | PM.PREOP ---
Pre-operative Note COVID-19 COVID-19 status: Negative Result date/Date tested (Pos, Neg/Pending): 12/08/21 Interval Note History & Physical reviewed/Exam performed by Physician: Yes Changes to H&P: No
[2021-12-10] MEDS: CEFAZOLIN 2 GM/20 ML SYRINGE IV (10:04)
--- NOTE | 2021-12-10 10:25 | SUR.OPER ---
Supine on padded OR bed, head on pillow, arms secured on padded arm boards at <90 degrees abduction, legs uncrossed, safety belt at thigh, tape over blanket over lower legs. Directed and approved by surgeon
[2021-12-10] MEDS: BUPIVACAINE 0.25% (PF) 30 ML, EPINEPHrine 0.15 MG INJ (10:39)
--- NOTE | 2021-12-10 11:02 | P.OP_ITS ---
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 She has correct most of her diabetes with dietary changes. She said history of severe right foot infections and had a 2nd toe ray amputation in [place] last year she has since September had a plantar wound of the great toe IP joint and after 2nd toe infection had onset of severe hallux valgus interphalangeus deformity of the great toe. She had finished 6 weeks of IV antibiotics but has a severe deformity and is at risk for recurrent ulceration. Been indicated for partial amputation of the right great toe through the proximal phalanx base. The risks and benefits of the procedure have been discussed with the patient even opportunity to ask questions. The risks of surgery include but are not limited to infection, wound healing problems, need for additional surgery, amputation, persistence of pain, damage to nerves and blood vessels, DVT, PE, cardiopulmonary complications and . The patient expressed a thorough understanding of the risks and benefits of surgery and has elected to proceed. Consent was signed. We discussed bony pathology and microbiology would be taken during the operation and depending on these findings additional antibiotics indicated Surgeon: Kori Kwok Click Yes if Unassisted: Yes Anesthesia Type: General and Local Operative Notes Findings: Severe hallux valgus interphalangeus deformity 90 degree angle or greater. Rigid and uncorrectable. Severe erosions of proximal phalanx distally with no remaining cartilage and bony deformity. Great toe distal phalanx was amputated and eroded region of proximal phalanx was removed distally with as much length as for served as possible in order to close without tension. The previous plantar ulceration was right at the level of the IP joint and shortening and skin flaps were designed around this. Closure Type: primary Specimen(s): other (Bone at extent of amputation site for microbiology. And great toe distal phalanx for pathology) Estimated Blood Loss (mL): 5 Blood products transfused: none Tourniquet time (min): 31 Procedure in detail: Patient was seen in the preoperative area the site of surgery marked informed consent confirmed. She was brought back to the operating room by the anesthesia team positioned supine on the operative table. General anesthetic was administered. Formal time-out procedure was performed confirming the patient's side and site of surgery administration of appropriate preoperative antibiotics. All in agreement. Right foot was prepped and draped in the standard sterile fashion. A thigh tourniquet was used. An SCD was on the contralateral lower extremity. Corcoran exsanguination was utilized and the tourniquet elevated to 250 mmHg. Amputation and skin flaps were designed around the healed plantar ulcer at the level of the IP joint there was a greater than 90 degree hallux valgus interphalangeus deformity. The distal phalanx was amputated trying to preserve as much length in soft tissue flaps as possible. Once this was removed with a full-thickness dissection using a scalpel was sent for pathology. This exposed the remaining end of the proximal phalanx which was a heavily eroded along the lateral side. C-arm x-ray was taken and then TPS saw was used to remove the the rotated apart of the proximal phalanx next the wound was cleansed with a copious amount of saline. A new clean drape was placed and gloves were changed. Additional rongeur was used to smooth the ends of the remaining bone and then this bone was sent for microbiology. A rasp was used along the edges to smooth that out and we made sure that the skin flaps would be able to be approximated without tension. This was then irrigated again final trimmings were made to the neurovascular bundles allowed to retract proximally into the flexor and extensor tendons. At this point a deep tissue closure was completed with 2-0 PDS suture subcutaneous with 4-0 Monocryl and 3-0 nylon in the skin. The came to the skin edges dog-ears were removed to make a nice smooth move incision line. Tourniquet was released hemostasis was achieved prior to final closure. Dressing was placed with Xeroform gauze Kerlix and Webril and Coban was placed. The patient was woken from anesthesia and taken to recovery room in good condition there no immediate complications. 10 cc of local anesthetic was used for postop pain. Complications: none Post-operative Condition: stable Disposition: PACU Plan for aftercare: She may be flatfoot or heel weight-bearing in a postoperative shoe . Keep dressing clean dry and intact. Sutures will remain in place 3-4 weeks. Will follow up in about 2 weeks in [facility] for wound check.
[2021-12-10 11:03] VITALS: BP 92/47; PULSE 72; RESP 16; TEMP 36.3; O2SAT 97
[2021-12-10 11:07] VITALS: BP 99/55; PULSE 70; RESP 12; O2SAT 97
[2021-12-10 11:13] VITALS: BP 105/45; PULSE 67; RESP 14; O2SAT 98
[2021-12-10 11:18] VITALS: BP 97/56; PULSE 65; RESP 14; O2SAT 98
[2021-12-10] MEDS: OXYCODONE IR 5 MG TABLET PO (11:22)
[2021-12-10 11:25] VITALS: BP 102/57; PULSE 64; RESP 18; TEMP 36.1; O2SAT 98
--- NOTE | 2021-12-10 12:05 | SUR.PHASEII ---
1155 stable, denies pain, tolerating PO well. No questions/concerns. Has her post-op shoe in the car and DME at home.
== END 2021-12-10 11:55 | disposition home or self-care (01) ==
PROVIDERS: Family Provider Family Medicine; PCP Family Medicine; Referring Provider Orthopaedic Surgery Foot and Ankle Surgery; Visit Provider Orthopaedic Surgery Foot and Ankle Surgery
PROC: (CPT 28825; principal; 2021-12-10 09:15)
DX: M86.8X7 Other osteomyelitis, ankle and foot (principal); M20.11 Hallux valgus (acquired), right foot; Z86.31 Personal history of diabetic foot ulcer; E11.9 Type 2 diabetes mellitus without complications; G62.1 Alcoholic polyneuropathy; F41.9 Anxiety disorder, unspecified
CPT/HCPCS: 28825; 82962; 87070; 87075; 87176; 87205; J0171; J0690; J1100; J1885; J2250; J2405; J2704; J3010

== ENCOUNTER 2022-07-14 11:09 | Emergency (ER) | payer OTHER, MEDICAID, SELFPAY ==
[2021-01-07 09:18] VITALS: BMI 20.7
[2022-07-14 11:15] VITALS: BP 135/69; PULSE 72; RESP 15; TEMP 36.4; O2SAT 100; BMI 22.5
[2022-07-14] MEDS: FLUORESCEIN 1 MG STRIP EYE-LEFT (11:28)
[2022-07-14] MEDS: PROPARACAINE 0.5% OPHTH SOL 1 DROPS EYE-LEFT (11:28)
--- NOTE | 2022-07-14 11:56 | ED.EYEPROB ---
HPI - Eye Problem General Chief complaint: Eye Problems Stated complaint: cant see out of left eye x8 days, pain Time Seen by Provider: 07/14/22 11:24 Source: patient Mode of arrival: Ambulatory History of Present Illness HPI Narrative: 47-year-old female nonsmoker with medical history of hyperlipidemia and DM presents with her significant other and the chief complaint of problems with her left eye over the past week. She denies any trauma or injury but states that she has had discomfort in her left eye and sensitivity to light over that time frame. She denies any foreign body, she does not use contacts. She denies any visual field cut, flashers or floaters but states it is a little bit blurry. She denies any headache, fever or chills but did have some upper respiratory symptoms with nasal congestion and runny nose a few weeks ago. Related Data Previous Rx's Medication Instructions Recorded hydrocodone 5 mg-acetaminophen 325 1 tab PO Q6H PRN pain #14 tabs 12/10/21 mg tablet ondansetron 4 mg disintegrating 4 mg PO Q8H PRN nausea and 12/10/21 tablet vomiting #7 tabs Allergies Allergy/AdvReac Type Severity Reaction Status Date / Time latex AdvReac Mild Redness, Verified 07/14/22 11:18 itchy Review of Systems Review of Systems Narrative: GENERAL: Denies chills, fatigue, malaise, fever, sweats. HEENT: See HPI RESPIRATORY: Denies dyspnea, cough, wheezing, hemoptysis, sputum. CARDIOVASCULAR: Denies chest pain, palpitations, orthopnea, edema, GASTROINTESTINAL: Denies nausea, vomiting, abdominal pain, diarrhea, constipation, melena. : Denies dysuria, frequency, incontinence, hematuria, urinary retention. MUSCULOSKELETAL: denies weakness, joint pain, or bony pain SKIN: Denies rash, skin lesions, or other NEUROLOGIC: Denies weakness, headache, numbness, change in speech, confusion, seizures, incoordination. PSYCHIATRIC: No concerning psychosocial issues. 12 point review of systems is negative except for those stated above Patient History Medical History Anxiety Diabetes mellitus Eczema Elevated liver enzymes Hyperlipidemia Neuropathy, alcoholic Osteomyelitis Patient denies medical problems Surgical History Amputated toe of right foot (01/2021) Anesthesia Family History Mother Diabetes mellitus Social History household members: spouse Smoking Status: Never smoker alcohol intake: former Smoking Status: Never smoker alcohol intake frequency: holidays/special occasions only Substance Use Type: does not use Exam Narrative Exam Narrative: GENERAL: [47] year old patient appears stated age. Well-developed patient, in mild distress. HEAD: Atraumatic. Normocephalic. EYES: Pupils equal round and reactive. Extraocular motions intact. Bright light obviously exacerbates symptoms, noted scleral injection and some watering. No obvious funduscopic abnormality, no hyphema. Moderate improvement with proparacaine, no fluorescein uptake. Javi-Pen notes 11 mm Hg left eye ENT: Nose without bleeding, purulent drainage. Throat without erythema, tonsillar hypertrophy or exudate. Airway patent. NECK: Trachea midline. Non tender CARDIOVASCULAR: Regular rate and rhythm without murmurs, gallops, or rubs. RESPIRATORY: Clear to auscultation. Breath sounds equal bilaterally. No wheezes, rales, or rhonchi. GASTROINTESTINAL: Abdomen soft, non-tender, nondistended. EXTREMITIES: No edema or joint tenderness. BACK: Nontender without deformity or crepitance. No flank tenderness. NEURO: AOx3. SKIN: No rash or erythema of visible areas Initial Vital Signs Initial Vital Signs: Vital Signs Temperature 97.5 F L 07/14/22 11:15 Pulse Rate 72 07/14/22 11:15 Respiratory Rate 15 07/14/22 11:15 Blood Pressure 135/69 07/14/22 11:15 Pulse Oximetry 100 07/14/22 11:15 Oxygen Delivery Method 07/14/22 11:15 Course Orders Ordered: Discontinued Medications Fluorescein Sodium (Fluorescein 1 Mg Strip) 1 mg EYE-LEFT NOW ONE Stop: 07/14/22 11:25 Last Admin: 07/14/22 11:28 Dose: 1 mg Documented By: PATRICE Proparacaine HCl (Proparacaine 0.5% Ophth Nicolasa) 1 drops EYE-LEFT NOW ONE Stop: 07/14/22 11:25 Last Admin: 07/14/22 11:28 Dose: 1 1000units Documented By: KB Consultations Consultation #1: call to ophtho. Left message Time: 12:37 Consultation #2: Call back from Ophthalmology, I have discussed with Dr. Ramires, she recommends sending the patient directly to her office Vital Signs Vital signs: Vital Signs - 8 hr 07/14/22 11:15 Temperature 97.5 F L Pulse Rate 72 Respiratory Rate 15 Blood Pressure 135/69 Pulse Oximetry 100 Oxygen Delivery Method Room Air MDM - Eye Problem MDM Narrative Medical decision making narrative: [47-year-old female with noncontributory medical history presents with significant other and a chief complaint of eye pain, redness and drainage in the absence of injury for the past week or so] Multiple etiologies for patient's symptoms considered including, but not limited to: [Conjunctivitis, acute angle closure glaucoma, uveitis, scleritis versus other] Prior Charts reviewed: Including preoperative notes as well as family practice visits from earlier in the year Conjunctivitis considered but thought unlikely given lack of exudate, minimal to moderate improvement with proparacaine. Abrasion and foreign body thought unlikely given lack of supporting findings on exam Acute angle closure glaucoma considered but pressures on Javi-Pen only 11 Consultations: Discussed with Dr. Ramires of Ophthalmology, she will see patient in the office directly from emergency department Patient's symptoms improved over duration of stay with above-stated therapies. Findings and discharge diagnosis discussed with patient/family followed by verbalization of understanding Return precautions discussed with patient/family whom verbalize understanding of diagnosis and plan Discharge Plan Departure Patient Disposition: Home Clinical Impression: Uveitis Instructions: DI for Eye Pain Activity Restrictions/Additional Instructions: please proceed directly to see Dr. Ramires at the ophthalmology office, they are expecting you. Prescriptions: No Action hydrocodone-acetaminophen 5-325 mg tablet 1 tab PO Q6H PRN (Reason: pain) Qty: 14 0RF Rx Instructions: Postop exempt ondansetron 4 mg tablet,disintegrating 4 mg PO Q8H PRN (Reason: nausea and vomiting) Qty: 7 0RF Referrals: Roxanne Ramires MD [Physician] - Jose Decker MD [Primary Care Provider] - Stand Alone Forms: Patient Portal/API
--- NOTE | 2022-07-14 12:06 | PC.NURSE ---
Unable to perform visual acuity,pt does not have her glasses with her.
[2022-07-14 13:56] VITALS: BP 114/74; PULSE 61; O2SAT 100
== END 2022-07-14 13:56 | disposition home or self-care (01) ==
PROVIDERS: Emergency Provider Emergency Medicine; Family Provider Family Medicine; PCP Family Medicine
DX: H20.9 Unspecified iridocyclitis (principal); H44.112 Panuveitis, left eye
CPT/HCPCS: 36415; 80053; 84443; 84550; 85025; 85651; 86038; 86140; 99282

== ENCOUNTER → 2022-07-14 16:58 | Outpatient (CLI) | payer OTHER, MEDICAID, SELFPAY ==
[2021-01-07 09:18] VITALS: BMI 20.7
[2022-07-14 17:29] LABS: Add Manual Diff / Slide Review NO; Basophils Absolute Auto 200 /uL (0-100); Basophils Percent Auto 2.3 % (0-2); Eosinophils Absolute Auto 600 /uL (0-450); Eosinophils Percent Auto 7.4 % (2-4); Hematocrit 38.9 % (36-46); Hemoglobin 13.1 g/dL (12.0-16.0); Lymphocytes Absolute Auto 2600 /uL (1100-4500); Lymphocytes Percent Auto 32.6 % (25-40); Mean Corpuscular HGB Conc 33.7 % (30-36); Mean Corpuscular Hemoglobin 30.9 PG (26-34); Mean Corpuscular Volume 91.6 fL (80-100); Monocytes Absolute Auto 400 /uL (0-900); Neutrophils Absolute Auto 4200 /uL (1500-7000); Neutrophils Percent Auto 52.7 % (50-75); Platelet Count 265 X10^3/uL (150-400); Red Blood Cell Count 4.25 X10^6/uL (4.0-5.2); Red Cell Distribution Width 14.9 % (11.6-14.8); White Blood Cell Count 7.9 X10^3/uL (4.5-11.0)
[2022-07-14 17:53] LABS: Erythrocyte Sedimentation Rate 22 MM/HR (0-20)
[2022-07-14 18:39] LABS: Alanine Aminotransferase 9 IU/L (<35); Albumin 4.5 g/dL (3.5-5.0); Albumin Globulin Ratio 1.1 (1.0-2.8); Alkaline Phosphatase 76 U/L (38-126); Aspartate Aminotransferase 15 IU/L (14-36); BUN Creatinine Ratio 17.3 (6-22); Bilirubin Total 0.4 mg/dL (0.2-1.3); Blood Urea Nitrogen 9 mg/dL (7-17); Calcium 8.9 mg/dL (8.4-10.2); Carbon Dioxide 30 mmol/L (22-32); Chloride 98 mmol/L (98-107); Estimated Glomerular Filt Rate > 60 mL/min (>60); Glucose 88 mg/dL (70-100); HEMOLYSIS < 15 (0-50); Potassium 3.9 mmol/L (3.4-5.1); Sodium 138 mmol/L (137-145); Total Protein 8.5 g/dL (6.3-8.2)
[2022-07-14 18:43] LABS: High Sensitivity CRP - Cardiac 2.8 mg/L (1.0-3.0)
[2022-07-14 19:09] LABS: Thyroid Stimulating Hormone 4.41 uIU/mL (0.47-4.68)
[2022-07-18 14:13] LABS: ANA Screen, IFA Negative (.)
== END ==
PROVIDERS: Family Provider Family Medicine; PCP Family Medicine; Referring Provider Ophthalmology; Visit Provider Ophthalmology
DX: H44.112 Panuveitis, left eye (principal)
CPT/HCPCS: 36415; 80053; 84443; 84550; 85025; 85651; 86038; 86140

== ENCOUNTER → 2022-08-23 08:54 | Outpatient (CLI) | payer OTHER, MEDICAID, SELFPAY ==
[2021-01-07 09:18] VITALS: BMI 20.7
[2022-08-23 10:43] LABS: Erythrocyte Sedimentation Rate 28 MM/HR (0-20)
[2022-08-23 10:47] LABS: C-Reactive Protein Quant 0.7 mg/dL (<1.0); Rheumatoid Factor < 8.6 IU/mL (<12.0); Uric Acid 2.9 mg/dL (2.5-6.2)
[2022-08-25 05:25] LABS: RPR Screen Non Reactive (Non Reactive)
[2022-08-26 04:08] LABS: Angiotensin Converting Enzyme 35 U/L (14-82)
[2022-08-26 09:36] LABS: Lysozyme (Muramidase) 5.7 ug/mL (2.5-12.9)
[2022-08-27 11:36] LABS: QuantiFERON Mitogen Value >10.00 IU/mL (.); QuantiFERON Nil Value 0.08 IU/mL (.); QuantiFERON TB Gold Plus Negative (Negative); QuantiFERON TB1 Ag Value 0.07 IU/mL (.); QuantiFERON TB2 Ag Value 0.06 IU/mL (.)
[2022-09-01 18:07] LABS: HLA B27 Negative (.)
== END ==
PROVIDERS: Family Provider Family Medicine; PCP Family Medicine; Referring Provider Ophthalmology; Visit Provider Ophthalmology
DX: H44.112 Panuveitis, left eye (principal); M05.8A Other rheumatoid arthritis with rheumatoid factor of other specified site
CPT/HCPCS: 36415; 81374; 82164; 84550; 85549; 85651; 86140; 86430; 86480; 86592

== ENCOUNTER → 2022-11-22 09:53 | Outpatient (CLI) | payer OTHER, MEDICAID, SELFPAY ==
[2021-01-07 09:18] VITALS: BMI 20.7
[2022-11-22 12:47] LABS: Erythrocyte Sedimentation Rate 42 MM/HR (0-20)
[2022-11-22 16:11] LABS: Creatinine Urine Random 153.1 mg/dL
[2022-11-22 16:17] LABS: Microalbumi Creatinin Ratio Ur 6.5 ug/mg CR (<30)
[2022-11-23 08:31] LABS: HSV 2 IGG AB 6.05 index (0.00-0.90); HSV1IGG < 0.91 index (0.00-0.90); Toxoplasma IgG Interp Negative (.); Toxoplasma gohndii IgG <3.0 IU/mL (0.0-7.1)
== END ==
PROVIDERS: Family Provider Family Medicine; PCP Family Medicine; Referring Provider Family Medicine; Visit Provider Family Medicine
DX: H44.119 Panuveitis, unspecified eye (principal); E11.9 Type 2 diabetes mellitus without complications
CPT/HCPCS: 36415; 82043; 82570; 85651; 86695; 86696; 86777; 86778

== ENCOUNTER → 2023-05-04 07:22 | Outpatient (CLI) | payer OTHER, MEDICAID, SELFPAY ==
[2021-01-07 09:18] VITALS: BMI 20.7
[2023-05-04 08:16] LABS: Add Manual Diff / Slide Review NO; Basophils Absolute Auto 0 /uL (0-100); Basophils Percent Auto 0.8 % (0-2); Eosinophils Absolute Auto 800 /uL (0-450); Eosinophils Percent Auto 12.3 % (2-4); Hematocrit 35.9 % (36-46); Hemoglobin 11.9 g/dL (12.0-16.0); Lymphocytes Absolute Auto 2400 /uL (1100-4500); Lymphocytes Percent Auto 36.7 % (25-40); Mean Corpuscular HGB Conc 33.3 % (30-36); Mean Corpuscular Hemoglobin 31.3 PG (26-34); Mean Corpuscular Volume 94.2 fL (80-100); Monocytes Absolute Auto 400 /uL (0-900); Monocytes Percent Auto 5.9 % (3-14); Neutrophils Absolute Auto 2800 /uL (1500-7000); Neutrophils Percent Auto 44.3 % (50-75); Platelet Count 279 X10^3/uL (150-400); Red Blood Cell Count 3.81 X10^6/uL (4.0-5.2); Red Cell Distribution Width 15.8 % (11.6-14.8); White Blood Cell Count 6.4 X10^3/uL (4.5-11.0)
[2023-05-04 08:23] LABS: Hemoglobin A1C% w Est Avg Glu 6.3 % (4.0-6.0)
[2023-05-04 08:29] LABS: Alanine Aminotransferase 11 IU/L (<35); Albumin 4.3 g/dL (3.5-5.0); Albumin Globulin Ratio 0.9 (1.0-2.8); Alkaline Phosphatase 75 U/L (38-126); Aspartate Aminotransferase 22 IU/L (14-36); BUN Creatinine Ratio 19.6 (6-22); Bilirubin Total 0.5 mg/dL (0.2-1.3); Blood Urea Nitrogen 10 mg/dL (7-17); C-Reactive Protein Quant 1.2 mg/dL (<1.0); Calcium 9.3 mg/dL (8.4-10.2); Carbon Dioxide 26 mmol/L (22-32); Chloride 101 mmol/L (98-107); Estimated Glomerular Filt Rate > 60 mL/min (>60); Globulin 4.9 g/dL (1.7-4.1); Glucose 94 mg/dL (70-100); HEMOLYSIS 22 (0-50); Sodium 137 mmol/L (137-145); Total Protein 9.2 g/dL (6.3-8.2)
[2023-05-04 08:57] LABS: TSH w/ Reflex to FT4 7.82 uIU/mL (0.47-4.68)
[2023-05-04 09:30] LABS: Free T4, Direct Thyroxine 0.96 ng/dL (0.78-2.19)
[2023-05-06 14:34] LABS: ANA Screen, IFA Negative (.)
== END ==
PROVIDERS: Family Provider Family Medicine; PCP Family Medicine; Referring Provider Family Medicine; Visit Provider Family Medicine
DX: H44.119 Panuveitis, unspecified eye (principal); M86.9 Osteomyelitis, unspecified; E78.5 Hyperlipidemia, unspecified; E11.9 Type 2 diabetes mellitus without complications
CPT/HCPCS: 36415; 80053; 83036; 84439; 84443; 85025; 86038; 86140

== ENCOUNTER 2023-06-27 17:19 | Emergency (ER) | payer OTHER, MEDICAID, SELFPAY ==
[2021-01-07 09:18] VITALS: BMI 20.7
[2023-06-27] VITALS (7 sets, daily range): BP systolic 96–118; BP diastolic 59–77; PULSE 68–82; RESP 18; TEMP 36.5–37.1; O2SAT 95–100; BMI 21.5
[2023-06-27 18:24] LABS: Add Manual Diff / Slide Review NO; Basophils Absolute Auto 0 /uL (0-100); Basophils Percent Auto 0.5 % (0-2); Eosinophils Absolute Auto 200 /uL (0-450); Hematocrit 31.9 % (36-46); Hemoglobin 10.8 g/dL (12.0-16.0); Lymphocytes Absolute Auto 1400 /uL (1100-4500); Lymphocytes Percent Auto 21.2 % (25-40); Mean Corpuscular HGB Conc 33.8 % (30-36); Mean Corpuscular Hemoglobin 30.9 PG (26-34); Mean Corpuscular Volume 91.4 fL (80-100); Monocytes Absolute Auto 500 /uL (0-900); Monocytes Percent Auto 7.2 % (3-14); Neutrophils Absolute Auto 4600 /uL (1500-7000); Neutrophils Percent Auto 68.1 % (50-75); Platelet Count 360 X10^3/uL (150-400); Red Blood Cell Count 3.49 X10^6/uL (4.0-5.2); Red Cell Distribution Width 14.9 % (11.6-14.8); White Blood Cell Count 6.8 X10^3/uL (4.5-11.0)
[2023-06-27 18:26] LABS: INR 1.2 (0.9-1.3); Prothrombin Time 13.5 SECONDS (9.4-12.5)
[2023-06-27 18:29] LABS: PTT Partial Thromboplastin Tim 29 SECONDS (25.1-36.5)
[2023-06-27 18:30] LABS: Lactate (Lactic Acid) 1.5 mmol/L (0.7-2.1)
[2023-06-27 18:31] LABS: Alanine Aminotransferase 10 IU/L (<35); Albumin 3.9 g/dL (3.5-5.0); Albumin Globulin Ratio 0.8 (1.0-2.8); Alkaline Phosphatase 78 U/L (38-126); Aspartate Aminotransferase 17 IU/L (14-36); BUN Creatinine Ratio 16.9 (6-22); Bilirubin Total 0.4 mg/dL (0.2-1.3); Blood Urea Nitrogen 11 mg/dL (7-17); Calcium 8.9 mg/dL (8.4-10.2); Carbon Dioxide 22 mmol/L (22-32); Chloride 105 mmol/L (98-107); Estimated Glomerular Filt Rate > 60 mL/min (>60); Globulin 4.8 g/dL (1.7-4.1); Glucose 139 mg/dL (70-100); HEMOLYSIS < 15 (0-50); Lipase 84 U/L (23-300); Potassium 3.7 mmol/L (3.4-5.1); Sodium 137 mmol/L (137-145); Total Protein 8.7 g/dL (6.3-8.2)
[2023-06-27 18:47] LABS: Procalcitonin 0.05 ng/mL (<0.5)
--- NOTE | 2023-06-27 19:03 | ED.WOUNDLAC ---
HPI - Wound/Laceration General Chief Complaint: Wound/Laceration Stated Complaint: rt foot possible infection Time Seen by Provider: 06/27/23 19:03 Source: patient Mode of arrival: Wheelchair History of Present Illness HPI narrative: Patient with history of diabetes and significant alcohol abuse not drinking now for a couple of years comes to the ED with painful bad smelling right foot. She is had previous amputation of the great toe on the right foot because of diabetic peripheral vascular disease. She does not smoke cigarettes. She had a wound on the sole of her foot sometime ago that was healed in a wound care clinic and has been doing well but over the past 3 or 4 days she is noticed increasing pain and she is not taken her sock off to look at it. Her is with her. They are all very surprised at the severity of the wound on her leg. She is unaware of any specific injury. She says she feels generally unwell but does not believe she is had a fever. She is had some nausea and vomiting a couple of days ago but no vomiting today. No chest pain shortness of breath or abdominal symptoms otherwise. She says that she was told that she no longer needed treatment for diabetes as her A1c was below 6. Related Data Previous Rx's Medication Instructions Recorded cephalexin 500 mg capsule 500 mg PO QID 7 days #28 caps 06/27/23 Allergies Allergy/AdvReac Type Severity Reaction Status Date / Time latex AdvReac Mild Redness, Verified 06/27/23 17:28 itchy Patient History Medical History (Updated 06/27/23 @ 22:01 by Glenn Cotton MD) Elevated blood protein Panuveitis Eczema Anxiety Neuropathy, alcoholic Osteomyelitis Hyperlipidemia Elevated liver enzymes Diabetes mellitus Patient denies medical problems Surgical History Anesthesia Amputated toe of right foot (01/2021) Family History Mother Diabetes mellitus Social History household members: spouse Smoking Status: Never smoker alcohol intake: former Smoking Status: Never smoker alcohol intake frequency: other Substance Use Type: does not use Exam Narrative Exam Narrative: GENERAL: Alert, cooperative and in no distress. HEAD: Atraumatic. Normocephalic. EYES: Sclera are clear without icterus. Extraocular movements are full. ENT: No rhinorrhea. Oropharynx is moist. Mouth exam is benign. NECK: Supple. Full range of motion. CARDIOVASCULAR: Normal rate and rhythm without murmur gallop or rub. RESPIRATORY: Clear to auscultation. Breath sounds equal bilaterally. No wheezes, rales, or rhonchi. GASTROINTESTINAL: Abdomen soft, non-tender, nondistended. EXTREMITIES: No edema, sole of the right foot has an open ulcer probably all the way to the metatarsal heads. There is generalized edema to the foot. Mild redness mild warmth. No vesicles, there is a strong anaerobic smell. No flowing purulence. No fluctuance or crepitus BACK: Normal inspection, no CVA tenderness. NEURO: Nonfocal examination, normal speech. SKIN: No rash or erythema of visible areas PSYCH: Normally oriented. Normal range of affect. Appropriate behavior Initial Vital Signs Initial Vital Signs: Vital Signs Temperature 97.7 F 06/27/23 17:25 Pulse Rate 82 06/27/23 17:25 Respiratory Rate 18 06/27/23 17:25 Blood Pressure 118/71 06/27/23 17:25 Pulse Oximetry 98 06/27/23 17:25 Oxygen Delivery Method Room Air 06/27/23 17:25 Course Orders Ordered: ED Orders 06/27/23 17:46 RT Consult Eval and Treat NOW 06/27/23 18:09 Complete Blood Count AUTO DIFF Stat Comprehensive Metabolic Panel Stat ESR [Erythrocyte Sedimentation Rate] Stat Lactate (Lactic Acid) Stat Lipase Stat PTT Partial Thromboplastin Curtis Stat Procalcitonin Stat Prothrombin Time INR Stat 06/27/23 19:22 XR foot RT 2V Stat 06/27/23 19:24 Blood Culture Stat Ondansetron HCl (Ondansetron 4 Mg/2 Ml Inj) 4 mg IV NOW PRN PRN Reason: Nausea And Vomiting Ondansetron HCl (Ondansetron 4 Mg Odt) 4 mg SL NOW PRN PRN Reason: Nausea And Vomiting Discontinued Medications Cephalexin HCl (Cephalexin 250 Mg Capsule) 500 mg PO NOW ONE Stop: 06/27/23 21:58 Vital Signs Vital signs: Vital Signs - 8 hr 06/27/23 17:25 06/27/23 19:34 06/27/23 19:35 Temperature 97.7 F Pulse Rate 82 75 Respiratory Rate 18 Blood Pressure 118/71 96/59 L Pulse Oximetry 98 95 Oxygen Delivery Method Room Air Room Air 06/27/23 19:35 06/27/23 20:00 06/27/23 20:00 Temperature Pulse Rate 72 72 Respiratory Rate Blood Pressure 105/62 Pulse Oximetry 100 99 Oxygen Delivery Method Room Air Room Air 06/27/23 20:30 06/27/23 20:30 06/27/23 21:00 Temperature Pulse Rate 69 68 Respiratory Rate Blood Pressure 104/68 Pulse Oximetry 100 100 Oxygen Delivery Method Room Air Room Air 06/27/23 21:00 Temperature Pulse Rate Respiratory Rate Blood Pressure 111/62 Pulse Oximetry Oxygen Delivery Method MDM - Wound/Laceration Lab Data 06/27/23 18:09 06/27/23 18:09 Labs: Lab Results 06/27/23 Range/Units 18:09 WBC 6.8 (4.5-11.0) X10^3/uL RBC 3.49 L (4.0-5.2) X10^6/uL Hgb 10.8 L (12.0-16.0) g/dL Hct 31.9 L (36-46) % MCV 91.4 (80-100) fL MCH 30.9 (26-34) PG MCHC 33.8 (30-36) % RDW 14.9 H (11.6-14.8) % Plt Count 360 (150-400) X10^3/uL Neut % (Auto) 68.1 (50-75) % Lymph % (Auto) 21.2 L (25-40) % [place] % (Auto) 7.2 (3-14) % Eos % (Auto) 3.0 (2-4) % Baso % (Auto) 0.5 (0-2) % Neut # (Auto) 4600 (7902-5616) /uL Lymph # (Auto) 1400 (1735-6662) /uL [place] # (Auto) 500 (0-900) /uL Eos # (Auto) 200 (0-450) /uL Baso # (Auto) 0 (0-100) /uL ESR 74 H (0-20) MM/HR PT 13.5 H (9.4-12.5) SECONDS INR 1.2 (0.9-1.3) APTT 29 (25.1-36.5) SECONDS Sodium 137 (137-145) mmol/L Potassium 3.7 (3.4-5.1) mmol/L Chloride 105 (98-107) mmol/L Carbon Dioxide 22 (22-32) mmol/L BUN 11 (7-17) mg/dL Creatinine 0.65 (0.52-1.04) mg/dL Estimated GFR > 60 (>60) mL/min BUN/Creatinine Ratio 16.9 (6-22) Glucose 139 H (70-100) mg/dL Lactate 1.5 (0.7-2.1) mmol/L Calcium 8.9 (8.4-10.2) mg/dL Total Bilirubin 0.4 (0.2-1.3) mg/dL AST 17 (14-36) IU/L ALT 10 (<35) IU/L Alkaline Phosphatase 78 (38-126) U/L Total Protein 8.7 H (6.3-8.2) g/dL Albumin 3.9 (3.5-5.0) g/dL Globulin 4.8 H (1.7-4.1) g/dL Albumin/Globulin Ratio 0.8 L (1.0-2.8) Lipase 84 (23-300) U/L Procalcitonin 0.05 (<0.5) ng/mL MDM Narrative Medical decision making narrative: I spoke with Dr. Tsang who will see the patient within the next couple of days in the clinic. He recommended oral antibiotics and routine wound care in the meantime. Discharge Plan Departure Patient Disposition: Home Clinical Impression: Osteomyelitis Instructions: DI for Wound Infection Activity Restrictions/Additional Instructions: Though the x-ray does not show it, I am very suspicious that you have a bone infection in your foot. Take the cephalexin 500 mg 4 times a day. You will see Dr. Tsang in the clinic in the coming days for further evaluation. If you develop high fever, repeated vomiting or feeling dramatically worse or redness is tracking up on your foot or the pain is dramatically worse, return to the ED in the meantime. Wash and clean and dress the wound once or twice a day. Prescriptions: New cephalexin 500 mg capsule 500 mg PO QID 7 Days Qty: 28 0RF Referrals: Glenn Cotton MD [Emergency Provider] - Jose Decker MD [Primary Care Provider] - Bryan Tsang MD [Physician] - Stand Alone Forms: Patient Portal/API
--- NOTE | 2023-06-27 19:22 | DI.RAD.S_ITS ---
PROCEDURE: XR FOOT RT 2V INDICATIONS: Open wound, osteomyelitis TECHNIQUE: 2 views of the foot were acquired. COMPARISON: [facility], CR, XR FOOT RT MIN 3V, 01/06/2021, 15:34. FINDINGS: Bones: There is amputation 2nd digit distal to the 2nd metatarsal. Digits 3 4 overlapping flexion deformities. Limited visualization demonstrates no discrete areas of osseous erosion. Midfoot degenerative changes are present. Soft tissues: No tibiotalar joint effusion. Achilles tendon appears normal. IMPRESSION: Postsurgical changes. No distinct visualized areas of osteomyelitis. However, if concern persists MRI or bone scan may be obtained. Dictated by: Suze Pablo M.D. on 06/27/2023 at 20:49 Approved by: Suze Pablo M.D. on 06/27/2023 at 20:51
[2023-06-27 20:04] LABS: Erythrocyte Sedimentation Rate 74 MM/HR (0-20)
[2023-06-27] MEDS: cephALEXin 250 MG CAPSULE 500 MG PO (22:24)
== END 2023-06-27 22:33 | disposition home or self-care (01) ==
PROVIDERS: Emergency Medicine; Emergency Provider Family Medicine Addiction Medicine; Family Provider Family Medicine; PCP Family Medicine
DX: M86.9 Osteomyelitis, unspecified (principal)
CPT/HCPCS: 36415; 73620; 80053; 83605; 83690; 84145; 85025; 85610; 85651; 85730; 87040; 99284

== ENCOUNTER → 2023-07-04 08:47 | Outpatient (CLI) | payer OTHER, MEDICAID, SELFPAY ==
[2021-01-07 09:18] VITALS: BMI 20.7
[2023-07-04 09:17] LABS: Add Manual Diff / Slide Review NO; Basophils Absolute Auto 0 /uL (0-100); Basophils Percent Auto 0.5 % (0-2); Eosinophils Absolute Auto 400 /uL (0-450); Eosinophils Percent Auto 7.1 % (2-4); Hematocrit 37.1 % (36-46); Hemoglobin 12.3 g/dL (12.0-16.0); Lymphocytes Absolute Auto 1700 /uL (1100-4500); Mean Corpuscular HGB Conc 33.1 % (30-36); Mean Corpuscular Hemoglobin 29.8 PG (26-34); Monocytes Absolute Auto 300 /uL (0-900); Monocytes Percent Auto 5.4 % (3-14); Neutrophils Absolute Auto 3700 /uL (1500-7000); Platelet Count 348 X10^3/uL (150-400); Red Blood Cell Count 4.12 X10^6/uL (4.0-5.2); Red Cell Distribution Width 14.9 % (11.6-14.8); White Blood Cell Count 6.1 X10^3/uL (4.5-11.0)
[2023-07-04 09:48] LABS: Erythrocyte Sedimentation Rate 53 MM/HR (0-20)
[2023-07-04 09:51] LABS: BUN Creatinine Ratio 20.3 (6-22); Blood Urea Nitrogen 13 mg/dL (7-17); Calcium 9.1 mg/dL (8.4-10.2); Carbon Dioxide 29 mmol/L (22-32); Chloride 99 mmol/L (98-107); Estimated Glomerular Filt Rate > 60 mL/min (>60); Glucose 122 mg/dL (70-100); HEMOLYSIS < 15 (0-50); Potassium 4.4 mmol/L (3.4-5.1); Sodium 136 mmol/L (137-145)
[2023-07-04 12:46] LABS: C-Reactive Protein Quant 0.7 mg/dL (<1.0)
== END ==
PROVIDERS: Family Provider Family Medicine; PCP Family Medicine; Referring Provider Orthopaedic Surgery Foot and Ankle Surgery; Visit Provider Orthopaedic Surgery Foot and Ankle Surgery
DX: M86.9 Osteomyelitis, unspecified (principal); M79.671 Pain in right foot; Z86.31 Personal history of diabetic foot ulcer
CPT/HCPCS: 36415; 80048; 85025; 85651; 86140

== ENCOUNTER → 2023-07-07 08:07 | Outpatient (CLI) | payer OTHER, MEDICAID, SELFPAY ==
[2021-01-07 09:18] VITALS: BMI 20.7
== END ==
LOC: WC 09:04
PROVIDERS: Family Provider Family Medicine; PCP Family Medicine; Referring Provider Orthopaedic Surgery Foot and Ankle Surgery; Visit Provider Physician Assistant
DX: E11.621 Type 2 diabetes mellitus with foot ulcer (principal); L97.516 Non-pressure chronic ulcer of other part of right foot with bone involvement without evidence of necrosis; L84 Corns and callosities; G62.1 Alcoholic polyneuropathy; M86.9 Osteomyelitis, unspecified; Z79.2 Long term (current) use of antibiotics; E78.5 Hyperlipidemia, unspecified; E11.59 Type 2 diabetes mellitus with other circulatory complications
CPT/HCPCS: 11042; 93922; 99213; 99214

== ENCOUNTER → 2023-07-14 08:33 | Outpatient (CLI) | payer OTHER, MEDICAID, SELFPAY ==
[2021-01-07 09:18] VITALS: BMI 20.7
== END ==
LOC: WC 08:41
PROVIDERS: Family Provider Family Medicine; PCP Family Medicine; Referring Provider Orthopaedic Surgery Foot and Ankle Surgery; Visit Provider Physician Assistant
DX: E11.621 Type 2 diabetes mellitus with foot ulcer (principal); L97.516 Non-pressure chronic ulcer of other part of right foot with bone involvement without evidence of necrosis; L84 Corns and callosities; I73.9 Peripheral vascular disease, unspecified; M86.471 Chronic osteomyelitis with draining sinus, right ankle and foot
CPT/HCPCS: 11042; 99214

== ENCOUNTER → 2023-07-16 07:30 | Outpatient (CLI) | payer OTHER, MEDICAID, SELFPAY ==
[2021-01-07 09:18] VITALS: BMI 20.7
--- NOTE | 2023-07-16 | DI.MRI.S_ITS ---
PROCEDURE: MR FOOT RT WO/W CON INDICATIONS: forefoot wound TECHNIQUE: Noncontrast coronal T1 spin echo and STIR, sagittal T1 spin echo with fat saturation and STIR, axial T1 spin echo and T2 fast spin echo with fat saturation. After the administration of contrast, axial/sagittal/coronal T1 spin echo with fat saturation through the right foot. COMPARISON: [facility], CR, XR FOOT RT 2V, 06/27/2023, 19:32. [facility], MR, MR FOOT RT WO/W CON, 01/07/2021, 10:23. FINDINGS: Image quality: Excellent. Bones: There is prior amputation of forefoot at the level of 1st proximal phalangeal shaft and 2nd metatarsal neck. Surgical margins are clean. Extensive edema throughout 3rd metatarsal shaft and head as well as adjacent 3rd proximal phalangeal base is seen. Bony erosive changes involving plantar cortex of 3rd metatarsal head is also noted. Osteoarthritic changes are noted throughout midfoot and forefoot joints. No other area of marrow edema or bony erosive changes. Contrast enhancement in the above-mentioned area of edema is seen. No other area of abnormal contrast enhancement. Soft tissues: Ulceration involving plantar aspect of forefoot at the level of 3rd MTP joint is seen with extensive surrounding edema and subcutaneous fat stranding. Contrast enhancement is also seen in plantar forefoot soft tissue. No discrete drainable peripherally enhancing fluid collection. Extensor and flexor tendons of forefoot are grossly intact. IMPRESSION: 1. Ulceration over plantar aspect of forefoot at the level of 3rd MTP joint. Extensive cellulitis over plantar aspect of forefoot. No discrete drainable abscess collection. 2. Osteomyelitis throughout 3rd metatarsal shaft and 3rd MTP joint as above. No other area of abnormal marrow signal or intraosseous enhancement. 3. Prior amputation of 1st and 2nd toe. Midfoot and forefoot joint osteoarthritis. No acute fracture or dislocation. Dictated by: Mario Cole M.D. on 07/17/2023 at 12:07 Approved by: Mario Cole M.D. on 07/17/2023 at 13:42
== END ==
PROVIDERS: Family Provider Family Medicine; PCP Family Medicine; Referring Provider Orthopaedic Surgery Foot and Ankle Surgery; Visit Provider Orthopaedic Surgery Foot and Ankle Surgery
DX: M86.271 Subacute osteomyelitis, right ankle and foot (principal); L03.115 Cellulitis of right lower limb; M19.071 Primary osteoarthritis, right ankle and foot; Z89.421 Acquired absence of other right toe(s)
CPT/HCPCS: 73720; A9579

== ENCOUNTER 2023-07-19 09:59 | Day surgery (SDC) | payer OTHER, MEDICAID, SELFPAY ==
[2021-01-07 09:18] VITALS: BMI 20.7
[2023-07-14 13:13] VITALS: BMI 21.5
--- NOTE | 2023-07-19 | DI.RAD.S_ITS ---
PROCEDURE: XR FOOT RT 2V INDICATIONS: 3RD METATARSAL HEAD AMPUTATION TECHNIQUE: Single intraoperative fluoroscopic views of the foot were acquired. COMPARISON: [facility], , XR FOOT RT 2V, 06/27/2023, 19:32. FINDINGS: Intraoperative fluoroscopic image of right foot shows amputation of 3rd toe at the level of mid 3rd metatarsal shaft. Prior amputation of 2nd toe at the level of 2nd metatarsal neck is also seen. IMPRESSION: Fluoro guidance was provided intraoperatively for 3rd metatarsal amputation. Dictated by: Mario Cole M.D. on 07/19/2023 at 16:56 Approved by: Mario Cole M.D. on 07/19/2023 at 16:58
--- NOTE | 2023-07-19 | PATH_ITS ---
[facility] Accession Number: [id number] No. of containers..01 Tissue . 01 Material submitted: . toe - RIGHT THIRD TOE METATARSAL . 01 Diagnosis: Right Third Toe Metatarsal, Amputation: Skin and underlying fibroconnective tissue with ulcer. Underlying bone with focal mild acute osteomyelitis in a background of changes compatible with chronic osteomyelitis. Skin, soft tissue and bone margins are viable. MRV 07/21/2023 1524 Local . 01 Electronically signed: . Jolanta Price MD, Pathologist NPI- [id number] . 01 Gross description: . The specimen is received in formalin labeled with the patient's name, , and R third toe metatarsal, consists of amputated digit extended to include the dorsal and plantar aspects of the foot measuring 6.3 cm in length, 4.5 cm in height, and 1.0 cm in width. The cutaneous surface is cifuentes to brown and wrinkled with an ulcerated area on the plantar aspect of the foot measuring 1.5 x 1.5 cm, and grossly approaches the soft tissue margins. The remaining cutaneous surface is wrinkled and unremarkable with a cifuentes nail bed. The soft tissue margin is inked blue while the bone margin is inked orange. Sectioning reveals cifuentes soft tissue with cifuentes, trabecular osseous tissue that is relatively easy to section with a scalpel. Cotton Picking Machine Operator sections are submitted as follows: . A1-A2: Soft tissue margin en face. A3: Fragmented bone margin en face. A4: Section with lesion and underlying bone. Submitted for decalcification. ([id number]) /MRV 07/20/2023 1823 Local . 01 Pathologist provided ICD-10: M79.671, M86.9, Z86.31 . 01 CPT . 231804, [id number] Specimen Comment: A courtesy copy of this report has been sent to [phone] Performed at: [facility] [address] [place] [address] [id number] MD Toby Villeda MD Phone: [phone]
[2023-07-19 10:54] VITALS: BMI 21.5
[2023-07-19 11:15] VITALS: BP 113/61; PULSE 88; RESP 17; TEMP 36.7; O2SAT 99
[2023-07-19] MEDS: LACTATED RINGERS 1,000 ML 42 ML IV (11:19)
[2023-07-19] MEDS: SCOPOLAMINE 1 PATCH TOP (11:22)
--- NOTE | 2023-07-19 11:24 | SUR.PREOP ---
Per [facility] MANAGER PORT ok to use PIC line.
--- NOTE | 2023-07-19 13:15 | PM.PREOP ---
Pre-operative Note Interval Note History & Physical reviewed/Exam performed by Physician: Yes Changes to H&P: No
[2023-07-19] MEDS: CEFAZOLIN 2 GM/100 ML PREMIX 100 ML IV (13:40)
[2023-07-19] MEDS: BUPIVACAINE 0.25% (PF) 30 ML, EPINEPHrine 0.15 MG INJ (14:06)
--- NOTE | 2023-07-19 14:19 | SUR.OPER ---
Supine on padded OR bed, head on pillow, arms secured on padded arm boards at <90 degrees abduction, legs uncrossed, safety belt at thigh, tape over blanket over LEFT LEG. RIGHT LEG HELD ON FIELD
[2023-07-19] MEDS: VANCOMYCIN 1,000 MG VIAL 1000 MG TOP (14:38)
[2023-07-19 15:14] VITALS: BP 103/65; PULSE 72; RESP 12; TEMP 36.7; O2SAT 98
[2023-07-19 15:20] VITALS: BP 107/58; PULSE 72; RESP 17; O2SAT 98
[2023-07-19 15:24] VITALS: BP 94/71; PULSE 71; RESP 17; O2SAT 99
[2023-07-19 15:30] VITALS: BP 106/65; PULSE 72; RESP 14; O2SAT 98
--- NOTE | 2023-07-19 15:51 | P.OP_ITS ---
Operative Date/Time/Diagnoses Date of procedure: 07/19/23 Time of procedure: 13:30 Pre-op diagnosis: 1. Right foot osteomyelitis 2. 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 She has a right foot neuropathic ulcer and osteomyelitis of the 3rd metatarsal and a rigid claw toe. She has an Achilles contracture. She has a draining plantar sinus at the level of the 3rd metatarsal head. She has been in wound care and seen Infectious Disease. She has been indicated for surgery for 3rd toe amputation and partial 3rd metatarsal amputation, Achilles lengthening and insertion of antibiotic beads. She is at risk for recurrence and new wounds. She has had previous surgeries and amputations in the past. The risks and benefits of the procedure have been discussed with the patient and given the opportunity to ask questions. The risks of surgery include but are not limited to infection, malunion, nonunion, persistence of pain, damage to nerves and blood vessels, posttraumatic arthritis, DVT, PE, cardiopulmonary complications and . The patient expressed a thorough understanding of the risks and benefits of surgery and has elected to proceed. Consent was signed. We discussed risks for needing additional procedures or further amputations. Surgeon: Kori Kowk Click Yes if Unassisted: Yes Anesthesia Type: General and Local Operative Notes Findings: Malodor, chronic draining sinus plantar 3rd metatarsal area full-thickness wound. Rigid claw toe. On incision and amputation there is malodor from the w ound. There is some scant purulence. No obvious abscess. Thickened tissues. There is softer texture of the 3rd metatarsal head consistent with osteomyelitis. The metatarsal head and 3rd toe were sent for pathology. A separate section of 3rd metatarsal the margin was sent for culture. After irrigation antibiotic beads were placed within the 3rd metatarsal shaft and wound. Achilles contracture with at least 5? of equinus with the extended improving to 0? with the knee bent Closure Type: primary Specimen(s): other (Bone sent for culture 3rd metatarsal. Third toe and metatarsal sent for pathology) Prosthetic devices, grafts, tissues, transplants, or devices: 3 cc of Stimulan beads calcium sulfate with 500 mg of vancomycin Estimated Blood Loss (mL): 0 Blood products transfused: none Tourniquet time (min): 55 Procedure in detail: Patient was seen in the preoperative area the site of surgery was marked informed consent confirmed. The patient was brought back to the operating room by the anesthesia team positioned supine on operative table. General anesthetic was administered. A well-padded thigh tourniquet was placed. Livedo reticularis was noticed on the patient's bilateral upper thighs. Right lower extremity was prepped and draped standard sterile fashion formal time-out procedure was performed confirming the patient's side and site of surgery administration of appropriate preoperative antibiotic. Achilles tendon lengthening: Attention was 1st turned to the Achilles contracture. The foot was held with a dorsiflexion stretch and the Achilles palpated. A 15 blade was used to make 3 hemisections in the [place] style with the distal and proximal lottie sections to the medial side and the middle lottie section to the lateral side for an audible and p alpable stretch with increase of dorsiflexion to 20? with the knee extended from -5 degrees preop. Plantar foot wound excision, toe amputation and metatarsal amputation: Attention was turned to the right foot this was elevated for exsanguination then the tourniquet was elevated and the thigh to 250 mmHg. The incision was drawn out on the right foot this ellipse size the plantar sinus in the tennis racquet type fashion to include the 3rd toe and extend along the 3rd metatarsal dorsally. This was then taken down through the skin subcutaneous tissue with a scalpel. Decisive incisions were made. Incision was taken down to bone. And the plantar sinus was circumferentially excised. Dissection was taken dorsally over the 3rd metatarsal and the baby Homans were used to expose metatarsal shaft. The C-arm was brought in image taken to cut this shorter than the previous 2nd metatarsal this was then cut with a TPS saw. Then the metatarsal head and neck and 3rd toe were sent for pathology. Next the saw was brought back and 1 more sliver of bone was taken at the margin to send for pathology. This point the rongeur was used to debride necrotic tissue. The flexor and extensor tendons were cut and allowed to retract. Neurovascular bundles were isolated and ligated. Next the base and was brought in and copious saline irrigation was used to clean the wound. Clean drape was placed and gloves were changed. At this point attention was turned to preparation of the antibiotic beads. Manual preparation of antibiotic beads: Manual preparation of the antibiotic beads was completed with 3 cc of calcium sulfate Stimulan beads mixed with 500 mg of vancomycin. This was allowed to harden and small 3 cc knees were made on the mat. Once these were hardened they were then placed into the wound. Careful insertion of the beads was placed down the 3rd metatarsal shaft. The rest were placed into the wound. And the wound was closed in a layered fashion with 2-0 PDS 4-0 Monocryl and 4-0 and 3-0 nylon suture. The remainder of the 500 mg vancomycin powder was placed into the wound before final closure. The tourniquet was released before final closure and a sterile dressing was placed with Xeroform gauze Webril and an Prasanth wrap and splint. Splint was placed in neutral dorsiflexion to support the Achilles lengthening. Complications: none Post-operative Condition: stable Disposition: PACU Plan for aftercare: Nonweightbearing in the splint x2 weeks then we will inspect the incision then possibly remove sutures. If incision healing well progressive weight-bearing in a tall walking boot after 1st postoperative visit. If incision healing takes longer may need to be nonweightbearing up to 4-6 weeks if necessary. She will continue her PICC line antibiotics per Infectious Disease at [facility]. She will follow up in 2 weeks with [facility].
[2023-07-19] MEDS: ONDANSETRON 4 MG/2 ML INJ IV (16:06)
[2023-07-19 16:40] VITALS: BP 124/72; PULSE 64; RESP 14; TEMP 36.3; O2SAT 97
== END 2023-07-19 16:50 | disposition home or self-care (01) ==
PROVIDERS: Family Provider Family Medicine; PCP Family Medicine; Referring Provider Orthopaedic Surgery Foot and Ankle Surgery; Visit Provider Orthopaedic Surgery Foot and Ankle Surgery
PROC: (CPT 28810; principal; 2023-07-19 11:45)
DX: M86.471 Chronic osteomyelitis with draining sinus, right ankle and foot (principal); M67.01 Short Achilles tendon (acquired), right ankle; L97.519 Non-pressure chronic ulcer of other part of right foot with unspecified severity; Q66.89 Other specified congenital deformities of feet; G62.1 Alcoholic polyneuropathy
CPT/HCPCS: 28810; 27685; 73620; 76000; 82962; 87070; 87075; 87176; 87205; J0171; J0690; J1885; J2250; J2405; J2704; J3010

== ENCOUNTER → 2023-08-02 10:43 | Outpatient (CLI) | payer OTHER, MEDICAID, SELFPAY ==
[2021-01-07 09:18] VITALS: BMI 20.7
--- NOTE | 2023-08-02 10:45 | DI.MRI.S_ITS ---
PROCEDURE: MR FOOT LT WO/W CON INDICATIONS: ULCER ON LEFT FOOT TECHNIQUE: Multiphasic, multisequence MRI of the forefoot was performed, before and after intravenous contrast administration. COMPARISON: [facility] [place], [place], XR FOOT 3 VIEWS WEIGHT BEARING BILATERAL, 07/18/2023, 9:13. FINDINGS: Image quality: Excellent. Bones and joints: Cortical irregularity is seen in the 2nd proximal phalangeal shaft with associated osseous edema and enhancement. Mild edema is seen within the cuneiform and cuboid bones as well as the 2nd and 3rd metatarsal shafts, which may be related to acute stress reaction versus arthritic changes. Very early neuropathic arthropathy is not excluded. Osseous structures otherwise appear to be normal in signal intensity. Mild degenerative changes are seen throughout the interphalangeal joints of the toes. Soft tissues: Skin ulceration is seen at the plantar aspect of the forefoot between the 2nd and 3rd metatarsal heads with surrounding soft tissue edema and enhancement. No focal fluid collection is seen. There is free T3 fatty infiltration of the intrinsic foot musculature with superimposed [id number] signal the no enhancement, most likely related to chronic denervation changes. The 2nd flexor tendons are not well seen the level of the metatarsophalangeal joint, and may be at least partially torn. The remaining visualized flexor and extensor tendons are grossly intact. Lisfranc ligament appears to be intact. IMPRESSION: 1. Skin ulceration at the plantar aspect of the forefoot near the 2nd webspace. No focal fluid collection or abscess is seen. 2. Osseous irregularity in the 2nd proximal phalangeal shaft has appearance most suggestive of healing fracture, although given the proximity to the plantar ulcer, osteomyelitis or pathologic fracture are not excluded. 3. Second flexor tendons are not well visualized at the level of the 2nd metatarsophalangeal joint and may be at least partially torn. 4. Mild osseous edema throughout the midfoot may be related to acute stress reaction or mild degenerative changes although very early neuropathic arthropathy is not excluded. 5. Diffuse fatty infiltration of the intrinsic foot musculature suspicious for chronic denervation changes. Approved by: Jose Roberto Rivers M.D. on 08/02/2023 at 14:22
== END ==
LOC: MRI 10:43
PROVIDERS: Family Provider Family Medicine; PCP Family Medicine; Referring Provider Orthopaedic Surgery Foot and Ankle Surgery; Visit Provider Orthopaedic Surgery Foot and Ankle Surgery
DX: E11.621 Type 2 diabetes mellitus with foot ulcer (principal); L97.521 Non-pressure chronic ulcer of other part of left foot limited to breakdown of skin
CPT/HCPCS: 73720; A9579